=== PATIENT | male | born 1950 | race Caucasian/White ===

== ENCOUNTER 2017-11-16 07:48 | Inpatient (IN) ==
[2017-11-16] MEDS ORDERED: Sod Chloride 0.9% Inj 1,000 ML IV.CONT SCH (09:15)
[2017-11-16 09:42] LABS: Baso # (Auto) 0.1 th/mm3 (0.0-0.2); Baso % (Auto) 1.2 % (0.0-2.0); Eos # (Auto) 0.1 th/mm3 (0.0-0.4); Eos % (Auto) 0.9 % (0.0-4.0); Hematocrit 23.8 % (39.0-51.0); Hemoglobin 7.7 gm/dL (13.0-17.0); Lymph # (Auto) 0.6 th/mm3 (1.0-4.8); Lymph % (Auto) 7.2 % (9.0-44.0); Mean Corpuscular HGB Conc 32.4 % (32.0-36.0); Mean Corpuscular Hemoglobin 31.1 pg (27.0-34.0); Mean Corpuscular Volume 95.9 fL (80.0-100.0); Mean Platelet Volume 7.5 fL (7.0-11.0); Neut # (Auto) 6.9 th/mm3 (1.8-7.7); Neut % (Auto) 79.7 % (16.0-70.0); Platelet Count 253 th/mm3 (150-450); Red Blood Count 2.48 mil/mm3 (4.50-5.90); Red Cell Distribution Width 26.6 % (11.6-17.2); White Blood Count 8.7 th/mm3 (4.0-11.0)
--- NOTE | 2017-11-16 09:45 | XR ---
EXAM DATE: 11/16/2017 9:41 AM EDT AGE/SEX: 67 years / Male INDICATIONS: Confusion, syncope. CLINICAL DATA: This is the patient's initial encounter. Patient reports that signs and symptoms have been present for 1 day and indicates a pain score of 0/10. MEDICAL/SURGICAL HISTORY: Congestive heart failure. Chronic obstructive pulmonary disease. CAB G. Pacemaker. COMPARISON: No prior exams available for comparison. FINDINGS: Small right pleural effusion is noted. Patchy opacity is noted within the right lung base consistent with probable pneumonia. The heart is enlarged. Median sternotomy wires are noted status post cardiac surgery. Left subclavian dual lead pacemaker has its tips in right atrium and right ventricle. No pn eumothorax is noted. CONCLUSION: 1. Patchy opacity within the right lung base consistent with probable pneumonia. Clinical correlatio n is recommended. 2. Small right pleural effusion. 3. Cardiomegaly. Electronically signed by: Thierno Roberts MD 11/16/2017 9:43 AM EDT
[2017-11-16 09:57] LABS: Activated Partial Thrombo Time 27.3 sec (24.3-30.1); INR 1.8 Ratio; Prothrombin Time 18.1 sec (9.8-11.6)
[2017-11-16] MEDS ORDERED: Phytonadione Inj 10 MG in Sodium Chlor 0.9% Inj 50 ML IV.SIG ONE (10:00)
[2017-11-16 10:04] LABS: Albumin 3.7 g/dL (3.4-5.0); Anion Gap 15 meq/L (5-15); Aspartate Aminotransferase 28 U/L (15-37); Blood Urea Nitrogen 82 mg/dL (7-18); Calcium 9.3 mg/dL (8.5-10.1); Carbon Dioxide 21.4 meq/L (21.0-32.0); Chloride 106 meq/L (98-107); Glomerular Filtration Rate 21 mL/min (>89); Glucose,Random 81 mg/dL (74-106); Potassium 4.2 meq/L (3.5-5.1); Sodium 142 meq/L (136-145)
[2017-11-16 10:05] LABS: Alanine Aminotransferase 15 U/L (12-78)
[2017-11-16 10:07] LABS: Alkaline Phosphatase 96 U/L (45-117); Total Protein 6.8 g/dL (6.4-8.2)
[2017-11-16 10:24] LABS: Bilirubin,Urine Negative (Negative); Clarity,Urine Clear (Clear); Color,Urine Yellow (Yellw/Straw); Glucose,Urine (UA) Negative (Negative); Leukocyte Esterase,Urine Negative (Negative); Nitrite,Urine Negative (Negative); Specific Gravity,Urine 1.012 (1.002-1.035)
[2017-11-16 10:31] LABS: Dimorphic RBC Present; Tear Drop Cells 1+
[2017-11-16] MEDS ORDERED: Pantoprazole Inj 40 MG Vial IV.PUSH ONE ×2 (12:58→13:29)
[2017-11-16] MEDS ORDERED: Pantoprazole Inj 80 MG in Sodium Chlor 0.9% Inj 100 ML IV.CONT SCH (13:00)
[2017-11-16] MEDS ORDERED: Octreotide Inj 50 MCG/ML Vial IV.PUSH ONE (13:01)
[2017-11-16] MEDS ORDERED: Sodium Chlor 0.9% Inj 250 ML IV.SIG SCH ×2 (14:00→15:00)
[2017-11-16] MEDS ORDERED: Heparin Central Flush 100 UNIT/ML 5 ML Vial IV.FLUSH ONE (14:49)
--- NOTE | 2017-11-16 14:50 | ED ---
HPI General Chief Complaint: Altered Mental Status Stated Complaint: Poss Bleeding Complaint Time Seen by Provider: 11/16/17 08:13 History of Present Illness HPI narrative: This is a 67-year-old male with a history of renal failure, previous GI bleed, atrial fibrillation, hypertension, diabetes mellitus, who presents today with complaints of bright red blood per rectum. is at bedside states that they are visiting here from [place] and she noted that over the last few days he has been more confused than normal. states that he has been transfused in the past. She states that he is more confused than he has at baseline however he does have baseline confusion. The patient is seen by a physician in [place] and has extensive medical background. The patient reports nausea with no vomiting. There are no other complaints at this time examination. Related Data Home Medications Medication Instructions Recorded Confirmed allopurinol 100 mg PO DAILY 11/16/17 11/16/17 aspirin [Aspir-81] 81 mg PO DAILY 11/16/17 11/16/17 bumetanide 4 mg PO TID 11/16/17 11/16/17 doxycycline hyclate 100 mg PO BID 11/16/17 11/16/17 insulin NPH isoph U-100 human 25 unit SUB-Q QPM 11/16/17 11/16/17 [Novolin N NPH U-100 Insulin] insulin NPH isoph U-100 human 30 unit SUB-Q QAM 11/16/17 11/16/17 [Novolin N NPH U-100 Insulin] metoprolol tartrate 12.5 mg PO BID 11/16/17 11/16/17 pantoprazole 40 mg PO DAILY 11/16/17 11/16/17 rosuvastatin 10 mg PO HS 11/16/17 11/16/17 spironolactone 25 mg PO BID 11/16/17 11/16/17 trazodone 25 mg PO HS 11/16/17 11/16/17 warfarin 2.5 mg PO DIRECTED 11/16/17 11/16/17 warfarin 5 mg PO DIRECTED 11/16/17 11/16/17 Allergies Allergy/AdvReac Type Severity Reaction Status Date / Time atorvastatin Allergy Severe Muscle Pain Verified 11/16/17 08:47 fenofibrate Allergy Severe Joint Pain Verified 11/16/17 08:47 prednisone AdvReac Severe Bleeding Verified 11/16/17 08:47 Review of Systems ROS: all other systems reviewed are negative Constitutional Reports system reviewed and no additional complaints, except as docu, Denies chills and Denies fever(s) Eyes Reports system reviewed and no additional complaints, except as docu ENT Reports system reviewed and no additional complaints, except as docu Cardiovascular Denies chest pain, Reports irregular heart rhythm (History of atrial fibrillation) and Denies palpitations Respiratory Denies chest congestion, Denies cough and Reports dyspnea (Mild) Gastrointestinal Reports hematochezia, Denies coffee ground emesis, Reports nausea and Denies vomiting Genitourinary Reports system reviewed and no additional complaints, except as docu Musculoskeletal Reports system reviewed and no additional complaints, except as docu Neurologic Denies behavioral changes, Reports confusion and Denies headache(s) PMFSH Medical History Medical History A-fib (Acute) Anemia (Acute) CAD (coronary artery disease) (Acute) CHF (congestive heart failure) (Acute) CHF (congestive heart failure) (Acute) Depression (Acute) Diabetes (Acute) GI bleed (Acute) Gout (Acute) High blood pressure (Acute) High cholesterol (Acute) History of blood transfusion (Acute) Hypotension (Acute) Low blood pressure (Acute) Mitral valve prolapse (Acute) Myocardial infarction (Acute) Skin cancer (Acute) Surgical History Surgical History H/O mitral valve replacement (Acute) History of cardiac cath (Acute) Hx of tonsillectomy (Acute) S/P CABG x 5 (Acute) S/P ablation of atrial fibrillation (Acute) Stented coronary artery (Acute) Social History Social History Substance History: No History of Abuse Second Hand Smoke Exposure: No Smoking Status: Former smoker How Often Do You Have a Drink Containing Alcohol: Never Recent Travel in [facility] within the Last 8 Weeks: No Recent Out of Country Travel within the Last 8 Weeks: No Immunization History Tetanus Immunization: >5 Years Hx Influenza Vaccine This Season: Yes Exam Narrative Exam Narrative: GENERAL: Well-developed well-nourished male in no obvious respiratory distress. SKIN: Focused skin assessment warm/dry. HEAD: Atraumatic. Normocephalic. EYES: Pupils equal and round. Mild icteric sclera. No injection or drainage. ENT: No nasal bleeding or discharge. Mucous membranes pink and moist. NECK: Trachea midline. Supple. CARDIOVASCULAR: Irregularly irregular with a rate in the 70s and 80s on my exam. No murmur appreciated. RESPIRATORY: No accessory muscle use. Clear to auscultation. Breath sounds equal bilaterally. GASTROINTESTINAL: Abdomen soft, non-tender, nondistended. Hepatic and splenic margins not palpable. RECTAL EXAM: Conrado red blood noted as rectal vault. MUSCULOSKELETAL: No obvious deformities. No clubbing. No cyanosis. No edema. NEUROLOGICAL: Awake and confused. No obvious cranial nerve deficits. Motor grossly within normal limits. Normal speech. Course Initial Documented Vital Signs Temperature 97.2 F L 11/16/17 07:50 Pulse Rate 75 11/16/17 07:50 Respiratory Rate 22 11/16/17 07:50 Blood Pressure 134/63 11/16/17 07:50 Pulse Oximetry 97 11/16/17 07:50 Last Documented Vital Signs Temperature 97.5 F L 11/16/17 13:22 Pulse Rate 99 H 11/16/17 13:22 Respiratory Rate 21 11/16/17 13:22 Blood Pressure 138/63 11/16/17 13:22 Pulse Oximetry 99 11/16/17 13:22 Medical Decision Making [facility] Narrative Medical decision making narrative: 67-year-old male with history of hepatorenal disease, presents today with complaints of rectal bleeding. The patient is noted to have a hemoglobin of 7.7. His pulse is under 100. Patient does have atrial fibrillation. He is anticoagulated with Coumadin. INR is 1.8. He has been given vitamin K 10 mg IV 1 dose. He has been typed and crossed for 2 units of blood. [facility] who agreed to admit the patient to his service. Patient with a GI consult. He has been started on Protonix. Medical Screen Exam Complete: Yes Emergency Medical Condition: Yes Differential Diagnosis Differential Diagnosis: Upper GI bleed versus lower GI bleed versus over anticoagulation versus liver failure versus renal failure Lab Data Result diagrams: 11/16/17 08:30 11/16/17 08:30 Lab Results 11/16/17 11/16/17 11/16/17 Range/Units 08:30 08:30 08:30 WBC 8.7 (4.0-11.0) th/mm3 RBC 2.48 L (4.50-5.90) mil/mm3 Hgb 7.7 L (13.0-17.0) gm/dL Hct 23.8 L (39.0-51.0) % MCV 95.9 (80.0-100.0) fL MCH 31.1 (27.0-34.0) pg MCHC 32.4 (32.0-36.0) % RDW 26.6 H (11.6-17.2) % Plt Count 253 (150-450) th/mm3 MPV 7.5 (7.0-11.0) fL Prelim Diff (Auto) Slide review pending Neut % (Auto) 79.7 H (16.0-70.0) % Lymph % (Auto) 7.2 L (9.0-44.0) % [place] % (Auto) 11.0 H (0.0-8.0) % Eos % (Auto) 0.9 (0.0-4.0) % Baso % (Auto) 1.2 (0.0-2.0) % Neut # (Auto) 6.9 (1.8-7.7) th/mm3 Lymph # (Auto) 0.6 L (1.0-4.8) th/mm3 [place] # (Auto) 1.0 H (0.0-0.9) th/mm3 Eos # (Auto) 0.1 (0.0-0.4) th/mm3 Baso # (Auto) 0.1 (0.0-0.2) th/mm3 WBC Differential . Diff Scan Auto diff confirmed Differential Comment . Dimorphic RBCs Present H (None) Tear Drop Cells 1+ H (None) PT 18.1 H (9.8-11.6) sec INR 1.8 Ratio APTT 27.3 (24.3-30.1) sec Sodium 142 (136-145) meq/L Potassium 4.2 (3.5-5.1) meq/L Chloride 106 (98-107) meq/L Carbon Dioxide 21.4 (21.0-32.0) meq/L Anion Gap 15 (5-15) meq/L BUN 82 H (7-18) mg/dL Creatinine 2.95 H (0.60-1.30) mg/dL Estimated GFR 21 L (>89) mL/min Random Glucose 81 (74-106) mg/dL Calcium 9.3 (8.5-10.1) mg/dL Total Bilirubin 0.5 (0.2-1.0) mg/dL AST 28 (15-37) U/L ALT 15 (12-78) U/L Alkaline Phosphatase 96 (45-117) U/L Ammonia (11-32) mcmol/L Total Protein 6.8 (6.4-8.2) g/dL Albumin 3.7 (3.4-5.0) g/dL Urine Color (Yellw/Straw) Urine Clarity (Clear) Urine pH (5.0-8.5) Ur Specific [place] (1.002-1.035) Urine Protein (Neg-Trace) mg/dL Urine Glucose (UA) (Negative) mg/dL Urine Ketones (Negative) mg/dL Urine Occult Blood (Negative) Urine Nitrate (Negative) Urine Bilirubin (Negative) Urine Urobilinogen (Less than 2) mg/dL Ur Leukocyte Esterase (Negative) Urine RBC (0-3) /hpf Urine WBC (0-5) /hpf Micro UA Comment Ur Microscopic Review Urine Culture Comments Blood Type Blood Type Recheck Antibody Screen Antibody Identification MTS Gel Crossmatch Blood Bank Comment 11/16/17 11/16/17 11/16/17 Range/Units 08:30 09:34 10:00 WBC (4.0-11.0) th/mm3 RBC (4.50-5.90) mil/mm3 Hgb (13.0-17.0) gm/dL Hct (39.0-51.0) % MCV (80.0-100.0) fL MCH (27.0-34.0) pg MCHC (32.0-36.0) % RDW (11.6-17.2) % Plt Count (150-450) th/mm3 MPV (7.0-11.0) fL Prelim Diff (Auto) Neut % (Auto) (16.0-70.0) % Lymph % (Auto) (9.0-44.0) % [place] % (Auto) (0.0-8.0) % Eos % (Auto) (0.0-4.0) % Baso % (Auto) (0.0-2.0) % Neut # (Auto) (1.8-7.7) th/mm3 Lymph # (Auto) (1.0-4.8) th/mm3 [place] # (Auto) (0.0-0.9) th/mm3 Eos # (Auto) (0.0-0.4) th/mm3 Baso # (Auto) (0.0-0.2) th/mm3 WBC Differential Diff Scan Differential Comment Dimorphic RBCs (None) Tear Drop Cells (None) PT (9.8-11.6) sec INR Ratio APTT (24.3-30.1) sec Sodium (136-145) meq/L Potassium (3.5-5.1) meq/L Chloride (98-107) meq/L Carbon Dioxide (21.0-32.0) meq/L Anion Gap (5-15) meq/L BUN (7-18) mg/dL Creatinine (0.60-1.30) mg/dL Estimated GFR (>89) mL/min Random Glucose (74-106) mg/dL Calcium (8.5-10.1) mg/dL Total Bilirubin (0.2-1.0) mg/dL AST (15-37) U/L ALT (12-78) U/L Alkaline Phosphatase (45-117) U/L Ammonia 98 H (11-32) mcmol/L Total Protein (6.4-8.2) g/dL Albumin (3.4-5.0) g/dL Urine Color Yellow (Yellw/Straw) Urine Clarity Clear (Clear) Urine pH 6.0 (5.0-8.5) Ur Specific [place] 1.012 (1.002-1.035) Urine Protein Negative (Neg-Trace) mg/dL Urine Glucose (UA) Negative (Negative) mg/dL Urine Ketones Trace H (Negative) mg/dL Urine Occult Blood Negative (Negative) Urine Nitrate Negative (Negative) Urine Bilirubin Negative (Negative) Urine Urobilinogen Less than 2 (Less than 2) mg/dL Ur Leukocyte Esterase Negative (Negative) Urine RBC Less than 1 (0-3) /hpf Urine WBC Less than 1 (0-5) /hpf Micro UA Comment Culture not ind Ur Microscopic Review Not Reportable Urine Culture Comments Culture not ind Blood Type O Negative Blood Type Recheck Required Antibody Screen Positive H Antibody Identification MTS Gel Crossmatch See Detail Blood Bank Comment 11/16/17 11/16/17 Range/Units 11:07 13:24 WBC (4.0-11.0) th/mm3 RBC (4.50-5.90) mil/mm3 Hgb (13.0-17.0) gm/dL Hct (39.0-51.0) % MCV (80.0-100.0) fL MCH (27.0-34.0) pg MCHC (32.0-36.0) % RDW (11.6-17.2) % Plt Count (150-450) th/mm3 MPV (7.0-11.0) fL Prelim Diff (Auto) Neut % (Auto) (16.0-70.0) % Lymph % (Auto) (9.0-44.0) % [place] % (Auto) (0.0-8.0) % Eos % (Auto) (0.0-4.0) % Baso % (Auto) (0.0-2.0) % Neut # (Auto) (1.8-7.7) th/mm3 Lymph # (Auto) (1.0-4.8) th/mm3 [place] # (Auto) (0.0-0.9) th/mm3 Eos # (Auto) (0.0-0.4) th/mm3 Baso # (Auto) (0.0-0.2) th/mm3 WBC Differential Diff Scan Differential Comment Dimorphic RBCs (None) Tear Drop Cells (None) PT (9.8-11.6) sec INR Ratio APTT (24.3-30.1) sec Sodium (136-145) meq/L Potassium (3.5-5.1) meq/L Chloride (98-107) meq/L Carbon Dioxide (21.0-32.0) meq/L Anion Gap (5-15) meq/L BUN (7-18) mg/dL Creatinine (0.60-1.30) mg/dL Estimated GFR (>89) mL/min Random Glucose (74-106) mg/dL Calcium (8.5-10.1) mg/dL Total Bilirubin (0.2-1.0) mg/dL AST (15-37) U/L ALT (12-78) U/L Alkaline Phosphatase (45-117) U/L Ammonia (11-32) mcmol/L Total Protein (6.4-8.2) g/dL Albumin (3.4-5.0) g/dL Urine Color (Yellw/Straw) Urine Clarity (Clear) Urine pH (5.0-8.5) Ur Specific [place] (1.002-1.035) Urine Protein (Neg-Trace) mg/dL Urine Glucose (UA) (Negative) mg/dL Urine Ketones (Negative) mg/dL Urine Occult Blood (Negative) Urine Nitrate (Negative) Urine Bilirubin (Negative) Urine Urobilinogen (Less than 2) mg/dL Ur Leukocyte Esterase (Negative) Urine RBC (0-3) /hpf Urine WBC (0-5) /hpf Micro UA Comment Ur Microscopic Review Urine Culture Comments Blood Type Blood Type Recheck Antibody Screen Antibody Identification Anti-K MTS Gel Crossmatch Blood Bank Comment Imaging Data Radiologist's impression: Chest X-Ray 11/16/17 09:12 CONCLUSION: 1. Patchy opacity within the right lung base consistent with probable pneumonia. Clinical correlation is recommended. 2. Small right pleural effusion. 3. Cardiomegaly. Discharge Plan Discharge Disposition Patient Disposition: 30 Still Patient Discharge Details Diagnosis: GI (gastrointestinal hemorrhage), Altered mental status, Anticoagulated on warfarin, Renal failure, Anemia Physicians Team ED Provider: Sabas Palomino Attending Provider: Luis Hernandez Other Providers: Roddy Patel Discharge Interventions Interventions: Vital Signs Last Done: 11/16/17 10:00 Discharge Planning - Case Management Last Done: 11/16/17 11:37 Status ED Status: Admitted Patient
--- NOTE | 2017-11-16 16:49 | P.CONGI ---
History of Present Illness Consult date: 11/16/17 Consult reason: GI bleed, rectal bleeding Chief complaint: GI Bleed, Anticoagulates, Renal Failure, Anemia History of Present Illness: This is a 67-year-old thin male who is from the [place] area on vacation presented to the emergency room with maroon rectal bleeding with a mixture of some dark blood over the past 24 hours patient does have significant history of GI bleeding, hypertension, diabetes and some baseline altered mental status according to the record. Patient also notes symptoms of weakness and fatigue and some nausea without vomiting. is in the room and is currently giving the history on the patient secondary to patient's altered mental status. Patient currently also on Coumadin therapy and is managed by Dr. Peck, ). Cardiology for mitral valve replacement and atrial fibrillation. Patient is also on iron infusions and he is received a total of 3 in the past few weeks. 2 of the iron infusions were given this past week before he left for vacation. Last hemoglobin check was approximately 2 weeks ago and unremarkable according to the . Currently patient is awake but fairly restless and appears mildly confused and restless at times patient's ammonia level is 98 PT/INR 1.8, and hemoglobin is 7.7 patient is currently receiving packed RBC transfusion. states that patient had similar incidents approximately 4 months ago and had EGD colonoscopy done. 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 denies any alcohol use and no family history of colon cancer. Patient does appear pale, and altered mental status which is probably related to his elevated ammonia level. Gastroenterology has been consulted to assist with this patient's acute symptoms as well as his plan of care. <Laxmi Izaguirre - Last Filed: 11/16/17 17:10> Review of Systems All other systems reviewed negative except as stated in HPI <Laxmi Izaguirre - Last Filed: 11/16/17 17:10> PMF - History History Provided By: Patient, Family Member - Medical History Medical History: Medical History (Last Updated 11/16/17 @ 08:53 by Erin Hammonds) A-fib Anemia CAD (coronary artery disease) CHF (congestive heart failure) CHF (congestive heart failure) Depression Diabetes GI bleed Gout High blood pressure High cholesterol History of blood transfusion Hypotension Low blood pressure Mitral valve prolapse Myocardial infarction Skin cancer - Surgical History Surgical History: Surgical History (Last Updated 11/16/17 @ 08:53 by [employer]) H/O mitral valve replacement History of cardiac cath Hx of tonsillectomy S/P CABG x 5 S/P ablation of atrial fibrillation Stented coronary artery - Tobacco History Second Hand Smoke Exposure: No Tobacco Use In Past 30 Days: No Smoking Status: Former smoker - Alcohol History How Often Do You Have a Drink Containing Alcohol: Never - Substance Use History Substance History: No History of Abuse - Travel History Recent Travel in the [place] Within the Last 8 Weeks: No Recent Travel Out of the Country Within the Last 8 Weeks: No - Immunization History Tetanus Immunization: >5 Years Hx Influenza Vaccine This Season: Yes <Laxmi Izaguirre - Last Filed: 11/16/17 17:10> - Medical History Medical History: Medical History (Last Updated 11/16/17 @ 08:53 by [employer]) A-fib Anemia CAD (coronary artery disease) CHF (congestive heart failure) CHF (congestive heart failure) Depression Diabetes GI bleed Gout High blood pressure High cholesterol History of blood transfusion Hypotension Low blood pressure Mitral valve prolapse Myocardial infarction Skin cancer - Surgical History Surgical History: Surgical History (Last Updated 11/16/17 @ 08:53 by [employer]) H/O mitral valve replacement History of cardiac cath Hx of tonsillectomy S/P CABG x 5 S/P ablation of atrial fibrillation Stented coronary artery <Roddy Patel - Last Filed: 11/16/17 22:02> Medications and Allergies Active Medications: Active Medications Pantoprazole Sodium 80 mg/ (Sodium Chloride) 100 mls @ 10 mls/hr IV.CONT CONT DAMIAN Ceftriaxone Sodium 1,000 mg/ (Sodium Chloride) 100 mls @ 200 mls/hr IV.SIG Q24H DAMIAN Octreotide Acetate 500 mcg/ (Sodium Chloride) 500.5 mls @ 25.02 mls/hr IV.CONT .Q20H1M DAMIAN Stop: 11/21/17 13:59 Sodium Chloride (Ns Inj) 1,000 mls @ 100 mls/hr IV.CONT .Q10H DAMIAN Sodium Chloride (Ns Inj) 250 mls @ 15 mls/hr IV.SIG ONCE DAMIAN Stop: 11/17/17 06:39 Sodium Chloride (Ns Inj) 250 mls @ 15 mls/hr IV.SIG ONCE DAMIAN Stop: 11/17/17 07:39 Sodium Chloride (Ns Flush) 2 ml IV.FLUSH BID DAMIAN Sodium Chloride (Ns Flush) 2 ml IV.FLUSH UNSCH PRN PRN Reason: FLUSH AFTER USING IV ACCESS <Laxmi Izaguirre - Last Filed: 11/16/17 17:10> Active Medications: Active Medications Pantoprazole Sodium 80 mg/ (Sodium Chloride) 100 mls @ 10 mls/hr IV.CONT CONT DAMIAN Last Admin: 11/16/17 17:04 Dose: 10 mls/hr Ceftriaxone Sodium 1,000 mg/ (Sodium Chloride) 100 mls @ 200 mls/hr IV.SIG Q24H DAMIAN Last Admin: 11/16/17 17:03 Dose: 200 mls/hr Octreotide Acetate 500 mcg/ (Sodium Chloride) 500.5 mls @ 25.02 mls/hr IV.CONT .Q20H1M DAMIAN Stop: 11/21/17 13:59 Last Admin: 11/16/17 17:04 Dose: 25 mcg/hr, 25.02 mls/hr Sodium Chloride (Ns Inj) 1,000 mls @ 100 mls/hr IV.CONT .Q10H DAMIAN Last Admin: 11/16/17 21:23 Dose: Not Given Sodium Chloride (Ns Inj) 250 mls @ 15 mls/hr IV.SIG ONCE DAMIAN Stop: 11/17/17 06:39 Last Admin: 11/16/17 14:00 Dose: 15 mls/hr Sodium Chloride (Ns Inj) 250 mls @ 15 mls/hr IV.SIG ONCE DAMIAN Stop: 11/17/17 07:39 Last Admin: 11/16/17 17:38 Dose: 15 mls/hr Lactated Ringer's (Lr 1000 Ml Inj) 1,000 mls @ 30 mls/hr IV.SIG .Q24H DAMIAN Stop: 11/17/17 21:44 Sodium Chloride (Ns Inj) 500 mls @ 30 mls/hr IV.SIG .Q10H DAMIAN Sodium Chloride (Ns Flush) 2 ml IV.FLUSH BID DAMIAN Last Admin: 11/16/17 21:24 Dose: 2 ml Sodium Chloride (Ns Flush) 2 ml IV.FLUSH UNSCH PRN PRN Reason: FLUSH AFTER USING IV ACCESS <Roddy Patel E - Last Filed: 11/16/17 22:02> Allergies Allergy/AdvReac Type Severity Reaction Status Date / Time atorvastatin Allergy Severe Muscle Pain Verified 11/16/17 08:47 fenofibrate Allergy Severe Joint Pain Verified 11/16/17 08:47 prednisone AdvReac Severe Bleeding Verified 11/16/17 08:47 Home Medications Medication Instructions Recorded Confirmed Type allopurinol 100 mg PO DAILY 11/16/17 11/16/17 History aspirin [Aspir-81] 81 mg PO DAILY 11/16/17 11/16/17 History bumetanide 4 mg PO TID 11/16/17 11/16/17 History doxycycline hyclate 100 mg PO BID 11/16/17 11/16/17 History insulin NPH isoph U-100 human 25 unit SUB-Q QPM 11/16/17 11/16/17 History [Novolin N NPH U-100 Insulin] insulin NPH isoph U-100 human 30 unit SUB-Q QAM 11/16/17 11/16/17 History [Novolin N NPH U-100 Insulin] metoprolol tartrate 12.5 mg PO BID 11/16/17 11/16/17 History pantoprazole 40 mg PO DAILY 11/16/17 11/16/17 History rosuvastatin 10 mg PO HS 11/16/17 11/16/17 History spironolactone 25 mg PO BID 11/16/17 11/16/17 History trazodone 25 mg PO HS 11/16/17 11/16/17 History warfarin 2.5 mg PO DIRECTED 11/16/17 11/16/17 History warfarin 5 mg PO DIRECTED 11/16/17 11/16/17 History Exam Vital signs: Vital Signs 11/16/17 07:50 11/16/17 08:30 11/16/17 09:00 Temperature 97.2 F L Pulse Rate 75 73 79 Respiratory Rate 22 21 16 Blood Pressure 134/63 118/65 109/63 Pulse Oximetry 97 98 100 11/16/17 09:15 11/16/17 10:00 11/16/17 13:05 Temperature 97.9 F Pulse Rate 74 101 H Respiratory Rate 15 19 Blood Pressure 116/58 L 121/53 L Pulse Oximetry 98 99 99 11/16/17 13:20 11/16/17 13:22 Temperature 97.6 F 97.5 F L Pulse Rate 100 H 99 H Respiratory Rate 16 21 Blood Pressure 140/60 138/63 Pulse Oximetry 100 99 Intake & Output 11/15/17 11/16/17 11/16/17 18:59 06:59 18:59 Intake Total 102 / 102 Output Total 150 / 150 Balance -48 / -48 Weight 92.533 kg Intake: IV 102 / 102 Vitamin K Inj 10 MG In NS Inj 102 / 102 50 ML @ 102 mls/hr IV.SIG ONCE ONE Rx#:[id number] Intake (Blood Product) Amt 0 / 0 Rbc As-3 Leukoreduced Unit 0 / 0 [id number] Output: Urine 150 / 150 - Constitutional moderate distress, thin, cachectic, disheveled - Routine HEENT Exam Head: Present: normocephalic ENT: Present: mucous membranes moist - Routine Neck Exam Present: supple - Routine Respiratory Exam Present: accessory muscle use (Low volumes, no obvious shortness of breath) - Routine Cardiovascular Exam Present: S1, S2 (Distant) - Routine Abdominal Exam Present: soft, normoactive bowel sounds, tenderness (No obvious tenderness or abdominal pain) <Laxmi Izaguirre - Last Filed: 11/16/17 17:10> Vital signs: Vital Signs 11/16/17 07:50 11/16/17 08:30 11/16/17 09:00 Temperature 97.2 F L Pulse Rate 75 73 79 Respiratory Rate 22 21 16 Blood Pressure 134/63 118/65 109/63 Pulse Oximetry 97 98 100 11/16/17 09:15 11/16/17 10:00 11/16/17 13:05 Temperature 97.9 F Pulse Rate 74 101 H Respiratory Rate 15 19 Blood Pressure 116/58 L 121/53 L Pulse Oximetry 98 99 99 11/16/17 13:20 11/16/17 13:22 11/16/17 17:30 Temperature 97.6 F 97.5 F L Pulse Rate 100 H 99 H 77 Respiratory Rate 16 21 18 Blood Pressure 140/60 138/63 139/65 Pulse Oximetry 100 99 11/16/17 18:08 11/16/17 18:27 11/16/17 20:00 Temperature 97.4 F L 97.2 F L 97.6 F Pulse Rate 75 75 77 Respiratory Rate 16 17 19 Blood Pressure 145/64 H 134/64 135/61 Pulse Oximetry 93 L 98 Intake & Output 11/16/17 11/16/17 11/17/17 06:59 18:59 06:59 Intake Total 1102 / 1102 Output Total 150 / 150 Balance 952 / 952 Weight 92.533 kg Intake: IV 1102 / 1102 NS Inj 1,000 ML @ 100 mls/hr IV 1000 / 1000 .CONT .Q10H DAMIAN Rx#:[id number] Vitamin K Inj 10 MG In NS Inj 102 / 102 50 ML @ 102 mls/hr IV.SIG ONCE ONE Rx#:[id number] Intake (Blood Product) Amt 0 / 0 Liquid Plasma Cp2d Unit 0 / 0 [id number] Rbc As-3 Leukoreduced Unit 0 / 0 [id number] Output: Urine 150 / 150 <Roddy Patel E - Last Filed: 11/16/17 22:02> Results - Labs CBC & Chem 7: 11/16/17 08:30 11/16/17 08:30 Labs: Laboratory Results - last 24 hr 11/16/17 11/16/17 11/16/17 08:30 08:30 08:30 WBC 8.7 RBC 2.48 L Hgb 7.7 L Hct 23.8 L MCV 95.9 MCH 31.1 MCHC 32.4 RDW 26.6 H Plt Count 253 MPV 7.5 Prelim Diff (Auto) Slide review pending Neut % (Auto) 79.7 H Lymph % (Auto) 7.2 L Garza % (Auto) 11.0 H Eos % (Auto) 0.9 Baso % (Auto) 1.2 Neut # (Auto) 6.9 Lymph # (Auto) 0.6 L Garza # (Auto) 1.0 H Eos # (Auto) 0.1 Baso # (Auto) 0.1 WBC Differential . Diff Scan Auto diff confirmed Differential Comment . Dimorphic RBCs Present H Tear Drop Cells 1+ H PT 18.1 H INR 1.8 APTT 27.3 Sodium 142 Potassium 4.2 Chloride 106 Carbon Dioxide 21.4 Anion Gap 15 BUN 82 H Creatinine 2.95 H Estimated GFR 21 L Random Glucose 81 Calcium 9.3 Total Bilirubin 0.5 AST 28 ALT 15 Alkaline Phosphatase 96 Ammonia Total Protein 6.8 Albumin 3.7 Urine Color Urine Clarity Urine pH Ur Specific [place] Urine Protein Urine Glucose (UA) Urine Ketones Urine Occult Blood Urine Nitrate Urine Bilirubin Urine Urobilinogen Ur Leukocyte Esterase Urine RBC Urine WBC Micro UA Comment Ur Microscopic Review Urine Culture Comments Blood Type Blood Type Recheck Antibody Screen Antibody Identification MTS Gel Crossmatch Blood Bank Comment 11/16/17 11/16/17 11/16/17 08:30 09:34 10:00 WBC RBC Hgb Hct MCV MCH MCHC RDW Plt Count MPV Prelim Diff (Auto) Neut % (Auto) Lymph % (Auto) Garza % (Auto) Eos % (Auto) Baso % (Auto) Neut # (Auto) Lymph # (Auto) Garza # (Auto) Eos # (Auto) Baso # (Auto) WBC Differential Diff Scan Differential Comment Dimorphic RBCs Tear Drop Cells PT INR APTT Sodium Potassium Chloride Carbon Dioxide Anion Gap BUN Creatinine Estimated GFR Random Glucose Calcium Total Bilirubin AST ALT Alkaline Phosphatase Ammonia 98 H Total Protein Albumin Urine Color Yellow Urine Clarity Clear Urine pH 6.0 Ur Specific [place] 1.012 Urine Protein Negative Urine Glucose (UA) Negative Urine Ketones Trace H Urine Occult Blood Negative Urine Nitrate Negative Urine Bilirubin Negative Urine Urobilinogen Less than 2 Ur Leukocyte Esterase Negative Urine RBC Less than 1 Urine WBC Less than 1 Micro UA Comment Culture not ind Ur Microscopic Review Not Reportable Urine Culture Comments Culture not ind Blood Type O Negative Blood Type Recheck Required Antibody Screen Positive H Antibody Identification MTS Gel Crossmatch See Detail Blood Bank Comment 11/16/17 11/16/17 11:07 13:24 WBC RBC Hgb Hct MCV MCH MCHC RDW Plt Count MPV Prelim Diff (Auto) Neut % (Auto) Lymph % (Auto) Garza % (Auto) Eos % (Auto) Baso % (Auto) Neut # (Auto) Lymph # (Auto) Garza # (Auto) Eos # (Auto) Baso # (Auto) WBC Differential Diff Scan Differential Comment Dimorphic RBCs Tear Drop Cells PT INR APTT Sodium Potassium Chloride Carbon Dioxide Anion Gap BUN Creatinine Estimated GFR Random Glucose Calcium Total Bilirubin AST ALT Alkaline Phosphatase Ammonia Total Protein Albumin Urine Color Urine Clarity Urine pH Ur Specific [place] Urine Protein Urine Glucose (UA) Urine Ketones Urine Occult Blood Urine Nitrate Urine Bilirubin Urine Urobilinogen Ur Leukocyte Esterase Urine RBC Urine WBC Micro UA Comment Ur Microscopic Review Urine Culture Comments Blood Type Blood Type Recheck Antibody Screen Antibody Identification Anti-K MTS Gel Crossmatch Blood Bank Comment - Imaging Impressions Chest X-Ray 11/16/17 09:12 CONCLUSION: 1. Patchy opacity within the right lung base consistent with probable pneumonia. Clinical correlation is recommended. 2. Small right pleural effusion. 3. Cardiomegaly. <Laxmi Izaguirre - Last Filed: 11/16/17 17:10> - Labs CBC & Chem 7: 11/16/17 08:30 11/16/17 08:30 Labs: Laboratory Results - last 24 hr 11/16/17 11/16/17 11/16/17 08:30 08:30 08:30 WBC 8.7 RBC 2.48 L Hgb 7.7 L Hct 23.8 L MCV 95.9 MCH 31.1 MCHC 32.4 RDW 26.6 H Plt Count 253 MPV 7.5 Prelim Diff (Auto) Slide review pending Neut % (Auto) 79.7 H Lymph % (Auto) 7.2 L Garza % (Auto) 11.0 H Eos % (Auto) 0.9 Baso % (Auto) 1.2 Neut # (Auto) 6.9 Lymph # (Auto) 0.6 L Garza # (Auto) 1.0 H Eos # (Auto) 0.1 Baso # (Auto) 0.1 WBC Differential . Diff Scan Auto diff confirmed Differential Comment . Dimorphic RBCs Present H Tear Drop Cells 1+ H PT 18.1 H INR 1.8 APTT 27.3 Sodium 142 Potassium 4.2 Chloride 106 Carbon Dioxide 21.4 Anion Gap 15 BUN 82 H Creatinine 2.95 H Estimated GFR 21 L Random Glucose 81 Calcium 9.3 Total Bilirubin 0.5 AST 28 ALT 15 Alkaline Phosphatase 96 Ammonia Total Protein 6.8 Albumin 3.7 Urine Color Urine Clarity Urine pH Ur Specific [place] Urine Protein Urine Glucose (UA) Urine Ketones Urine Occult Blood Urine Nitrate Urine Bilirubin Urine Urobilinogen Ur Leukocyte Esterase Urine RBC Urine WBC Micro UA Comment Ur Microscopic Review Urine Culture Comments Blood Type Blood Type Recheck Antibody Screen Antibody Identification MTS Gel Crossmatch Blood Bank Comment 11/16/17 11/16/17 11/16/17 08:30 09:34 10:00 WBC RBC Hgb Hct MCV MCH MCHC RDW Plt Count MPV Prelim Diff (Auto) Neut % (Auto) Lymph % (Auto) Garza % (Auto) Eos % (Auto) Baso % (Auto) Neut # (Auto) Lymph # (Auto) Garza # (Auto) Eos # (Auto) Baso # (Auto) WBC Differential Diff Scan Differential Comment Dimorphic RBCs Tear Drop Cells PT INR APTT Sodium Potassium Chloride Carbon Dioxide Anion Gap BUN Creatinine Estimated GFR Random Glucose Calcium Total Bilirubin AST ALT Alkaline Phosphatase Ammonia 98 H Total Protein Albumin Urine Color Yellow Urine Clarity Clear Urine pH 6.0 Ur Specific [place] 1.012 Urine Protein Negative Urine Glucose (UA) Negative Urine Ketones Trace H Urine Occult Blood Negative Urine Nitrate Negative Urine Bilirubin Negative Urine Urobilinogen Less than 2 Ur Leukocyte Esterase Negative Urine RBC Less than 1 Urine WBC Less than 1 Micro UA Comment Culture not ind Ur Microscopic Review Not Reportable Urine Culture Comments Culture not ind Blood Type O Negative Blood Type Recheck Required Antibody Screen Positive H Antibody Identification MTS Gel Crossmatch See Detail Blood Bank Comment 11/16/17 11/16/17 11:07 13:24 WBC RBC Hgb Hct MCV MCH MCHC RDW Plt Count MPV Prelim Diff (Auto) Neut % (Auto) Lymph % (Auto) Garza % (Auto) Eos % (Auto) Baso % (Auto) Neut # (Auto) Lymph # (Auto) Garza # (Auto) Eos # (Auto) Baso # (Auto) WBC Differential Diff Scan Differential Comment Dimorphic RBCs Tear Drop Cells PT INR APTT Sodium Potassium Chloride Carbon Dioxide Anion Gap BUN Creatinine Estimated GFR Random Glucose Calcium Total Bilirubin AST ALT Alkaline Phosphatase Ammonia Total Protein Albumin Urine Color Urine Clarity Urine pH Ur Specific [place] Urine Protein Urine Glucose (UA) Urine Ketones Urine Occult Blood Urine Nitrate Urine Bilirubin Urine Urobilinogen Ur Leukocyte Esterase Urine RBC Urine WBC Micro UA Comment Ur Microscopic Review Urine Culture Comments Blood Type Blood Type Recheck Antibody Screen Antibody Identification Anti-K MTS Gel Crossmatch Blood Bank Comment - Imaging Impressions GI Bleed Scan Nuclear Medicine 11/16/17 00:00 CONCLUSION: Positive GI bleeding scan as above. Chest X-Ray 11/16/17 09:12 CONCLUSION: 1. Patchy opacity within the right lung base consistent with probable pneumonia. Clinical correlation is recommended. 2. Small right pleural effusion. 3. Cardiomegaly. <Roddy Patel E - Last Filed: 11/16/17 22:02> Assessment and Plan - Plan Maroon rectal bleeding with a mixture of some dark blood over the past 24 hours patient does have significant history of GI bleeding, hypertension, diabetes and some baseline altered mental status according to the record. weakness and fatigue and some nausea without vomiting. is in the room and is currently giving the history on the patient secondary to patient's altered mental status. Patient currently also on Coumadin therapy and is managed by Dr. Peck, ([phone]). Cardiology for mitral valve replacement and atrial fibrillation. Patient is also on iron infusions and he is received a total of 3 in the past few weeks. 2 of the iron infusions were given this past week before he left for vacation. Hyperammonemia ,mildly confused and restless at times patient's ammonia level is 98, PT/INR 1.8, and hemoglobin is 7.7 patient is currently receiving packed RBC transfusion. states that patient had similar incidents approximately 4 months ago and had EGD colonoscopy done. 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 denies any alcohol use and no family history of colon cancer. Patient does appear pale, and altered mental status which is probably related to his elevated ammonia level. Gastroenterology has been consulted to assist with this patient's acute symptoms as well as his plan of care. Coagulopathy with INR 1.8, patient was given vitamin K dose in the emergency room setting, currently has first unit of packed RBCs transfusing, 2 units ordered. Current plan of care is to controlled coagulopathy and decrease INR to 145 or less. Plan for bleeding scan this p.m. if patient can tolerate, and planned for 2 units of FFP to be initiated at a 100 on 11/17/2017. Plan for EGD in a.m. and PT/INR check and evaluation. Explained plan of care to and she agrees Plan Diet n.p.o. Nuclear medicine bleeding scan this p.m. Transfuse packed RBCs and monitor hemoglobin FFP 2 units to be given at 0100 INR for am, check and notify GI if >1.5 Consent for enteroscopy in a.m. Supportive care PPI Further recommendations to follow Patient was seen per myself and Dr. Patel, note was written on his behalf <Laxmi Izaguirre - Last Filed: 11/16/17 17:10> - Plan Patient seen and examined Agree with above Continue current supportive care Monitor labs Bleeding scan is come back positive for bleeding from the small bowel Patient to proceed with enteroscopy tomorrow case was discussed with his she is agreeable We will continue with current supportive measures which include FFP for reversal of anticoagulation Further recommendations shall depend on his hospital course and findings of endoscopy <Roddy Patel E - Last Filed: 11/16/17 22:02>
--- NOTE | 2017-11-16 16:56 | NM ---
EXAM DATE: 11/16/2017 4:47 PM EDT AGE/SEX: 67 years / Male INDICATIONS: Rectal bleed. CLINICAL DATA: This is the patient's initial encounter. Patient reports that signs and symptoms have been present for 1 day and indicates a pain score of 0/10. MEDICAL/SURGICAL HISTORY: Congestive heart failure. Hypertension. Myocardial infarction. Atr ial fibrillation. Tonsillectomy. CABG. Coronary artery stent. Mitral valve replacement and ablati on. COMPARISON: No prior exams available for comparison. TECHNIQUE: Following the modified in vitro labeling of autologous red cells, dynamic continuous image s were acquired for two hours. ?? DOSE: 21 mCi Tc 99m Ultratag Labeled Red Blood Cells IV IMAGING TIME: 1 hr FINDINGS: Biodistribution: There is a very good labeling of red cells positive GI bleeding scan without signif icant uptake in the gastric wall. There is good delineation of the blood pool of the spleen and abdo migue vessels. Bleeding: There appears to be an area of active bleeding in what appears to be a right para midline mid abdominal small bowel loop. CONCLUSION: Positive GI bleeding scan as above. Electronically signed by: Caio Quiroz MD 11/16/2017 4:55 PM EDT
[2017-11-16] MEDS: Octreotide Inj 500 MCG in Sodium Chlor 0.9% Inj 500 ML IV.CONT SCH (17:04)
--- NOTE | 2017-11-16 18:08 | P.HPIM ---
History of Present Illness Primary Care Physician: Michael Mcelroy Chief Complaint: Bloody stools History of Present Illness: This patient is a 67-year-old male who is from [place] and currently on vacation. The patient has an extensive cardiac history. He has a history of coronary artery disease status post CABG, mitral valve replacement, atrial fibrillation on Coumadin, and right-sided heart failure, and chronic kidney disease.. The patient's hot wort settler name is Dr. Peck in [place](). As per the patient's and the patient's hot wort settler the patient has a history of GI bleeds in the past and has required multiple EGDs in the past because of upper GI bleeds. I spoke to Dr. Peck over the phone who said that the EGDs showed AVMs and his last EGD the patient had a great amount of bleeding. During a bleeding episode the patient required nearly 10 units of PRBCs as per the patient's . This morning the patient appeared to be altered and the noticed that he had a maroon colored bowel movement. She then brought the patient into the emergency department for evaluation and care. There is no fevers or chills, no chest pain, no shortness of breath. Inpatient Certification: I certify that the inpatient services were ordered in accordance with Medicare regulations governing the order. This includes certification that hospital inpatient services are reasonable and necessary and in the case of services not specified as inpatient-only under 42 CFR 419.22(n), that they are appropriately provided as inpatient services in accordance to with the 2-midnight benchmark under 43 CFR 412.3(e) Estimated Total Length of Stay (Days): 3 Plans for Post Hospital Care: Home Review of Systems All other systems reviewed negative except as stated in HPI [facility] - History History Provided By: Patient, Family Member - Medical History Medical History: Medical History (Last Updated 11/16/17 @ 08:53 by Sandglaz) A-fib Anemia CAD (coronary artery disease) CHF (congestive heart failure) CHF (congestive heart failure) Depression Diabetes GI bleed Gout High blood pressure High cholesterol History of blood transfusion Hypotension Low blood pressure Mitral valve prolapse Myocardial infarction Skin cancer - Surgical History Surgical History: Surgical History (Last Updated 11/16/17 @ 08:53 by Sandglaz) H/O mitral valve replacement History of cardiac cath Hx of tonsillectomy S/P CABG x 5 S/P ablation of atrial fibrillation Stented coronary artery - Tobacco History Second Hand Smoke Exposure: No Tobacco Use In Past 30 Days: No Smoking Status: Former smoker - Alcohol History How Often Do You Have a Drink Containing Alcohol: Never - Substance Use History Substance History: No History of Abuse - Travel History Recent Travel in the [place] Within the Last 8 Weeks: No Recent Travel Out of the Country Within the Last 8 Weeks: No - Immunization History Tetanus Immunization: >5 Years Hx Influenza Vaccine This Season: Yes Medications and Allergies Active Medications: Active Medications Pantoprazole Sodium 80 mg/ (Sodium Chloride) 100 mls @ 10 mls/hr IV.CONT CONT [facility] Last Admin: 11/16/17 17:04 Dose: 10 mls/hr Ceftriaxone Sodium 1,000 mg/ (Sodium Chloride) 100 mls @ 200 mls/hr IV.SIG Q24H [facility] Last Admin: 11/16/17 17:03 Dose: 200 mls/hr Octreotide Acetate 500 mcg/ (Sodium Chloride) 500.5 mls @ 25.02 mls/hr IV.CONT .Q20H1M [facility] Stop: 11/21/17 13:59 Last Admin: 11/16/17 17:04 Dose: 25 mcg/hr, 25.02 mls/hr Sodium Chloride (Ns Inj) 1,000 mls @ 100 mls/hr IV.CONT .Q10H [facility] Sodium Chloride (Ns Inj) 250 mls @ 15 mls/hr IV.SIG ONCE [facility]IAN Stop: 11/17/17 06:39 Last Admin: 11/16/17 14:00 Dose: 15 mls/hr Sodium Chloride (Ns Inj) 250 mls @ 15 mls/hr IV.SIG ONCE DAMIAN Stop: 11/17/17 07:39 Last Admin: 11/16/17 17:38 Dose: 15 mls/hr Sodium Chloride (Ns Flush) 2 ml IV.FLUSH BID DAMIAN Sodium Chloride (Ns Flush) 2 ml IV.FLUSH UNSCH PRN PRN Reason: FLUSH AFTER USING IV ACCESS Allergies Allergy/AdvReac Type Severity Reaction Status Date / Time atorvastatin Allergy Severe Muscle Pain Verified 11/16/17 08:47 fenofibrate Allergy Severe Joint Pain Verified 11/16/17 08:47 prednisone AdvReac Severe Bleeding Verified 11/16/17 08:47 Home Medications Medication Instructions Recorded Confirmed Type allopurinol 100 mg PO DAILY 11/16/17 11/16/17 History aspirin [Aspir-81] 81 mg PO DAILY 11/16/17 11/16/17 History bumetanide 4 mg PO TID 11/16/17 11/16/17 History doxycycline hyclate 100 mg PO BID 11/16/17 11/16/17 History insulin NPH isoph U-100 human 25 unit SUB-Q QPM 11/16/17 11/16/17 History [Novolin N NPH U-100 Insulin] insulin NPH isoph U-100 human 30 unit SUB-Q QAM 11/16/17 11/16/17 History [Novolin N NPH U-100 Insulin] metoprolol tartrate 12.5 mg PO BID 11/16/17 11/16/17 History pantoprazole 40 mg PO DAILY 11/16/17 11/16/17 History rosuvastatin 10 mg PO HS 11/16/17 11/16/17 History spironolactone 25 mg PO BID 11/16/17 11/16/17 History trazodone 25 mg PO HS 11/16/17 11/16/17 History warfarin 2.5 mg PO DIRECTED 11/16/17 11/16/17 History warfarin 5 mg PO DIRECTED 11/16/17 11/16/17 History Exam Vital signs: Vital Signs 11/16/17 07:50 11/16/17 08:30 11/16/17 09:00 Temperature 97.2 F L Pulse Rate 75 73 79 Respiratory Rate 22 21 16 Blood Pressure 134/63 118/65 109/63 Pulse Oximetry 97 98 100 11/16/17 09:15 11/16/17 10:00 11/16/17 13:05 Temperature 97.9 F Pulse Rate 74 101 H Respiratory Rate 15 19 Blood Pressure 116/58 L 121/53 L Pulse Oximetry 98 99 99 11/16/17 13:20 11/16/17 13:22 11/16/17 17:30 Temperature 97.6 F 97.5 F L Pulse Rate 100 H 99 H 77 Respiratory Rate 16 21 18 Blood Pressure 140/60 138/63 139/65 Pulse Oximetry 100 99 Intake & Output 11/15/17 11/16/17 11/16/17 18:59 06:59 18:59 Intake Total 1102 / 1102 Output Total 150 / 150 Balance 952 / 952 Weight 92.533 kg Intake: IV 110 / 1102 NS Inj 1,000 ML @ 100 mls/hr IV 1000 / 1000 .CONT .Q10H [facility] Rx#:[id number] Vitamin K Inj 10 MG In NS Inj 102 / 102 50 ML @ 102 mls/hr IV.SIG ONCE ONE Rx#:[id number] Intake (Blood Product) Amt 0 / 0 Rbc As-3 Leukoreduced Unit 0 / 0 [id number] Output: Urine 150 / 150 Narrative: The patient appears anxious, he is slow to respond to my questions and is altered. HEENT dry oropharyngeal mucosa, Cardiovascular S1-S2, tachycardia Respiratory clear to auscultation bilaterally Abdomen soft, nontender, nondistended, normal bowel sounds Extremities no edema 2+ distal pulses in bilateral upper and lower extremities Neuro patient is not following my commands, he appears anxious. Full neuro examination is difficult to assess because the patient is altered. He is however moving all 4 extremities and sensation appears to be intact bilaterally. Results - Labs CBC & Chem 7: 11/16/17 08:30 11/16/17 08:30 Labs: Short CBC 11/16/17 Range/Units 08:30 WBC 8.7 (4.0-11.0) th/mm3 Hgb 7.7 L (13.0-17.0) gm/dL Hct 23.8 L (39.0-51.0) % Plt Count 253 (150-450) th/mm3 BMP 11/16/17 08:30 Sodium 142 Potassium 4.2 Chloride 106 Carbon Dioxide 21.4 BUN 82 H Creatinine 2.95 H Calcium 9.3 Liver Function 11/16/17 Range/Units 08:30 Total Bilirubin 0.5 (0.2-1.0) mg/dL AST 28 (15-37) U/L ALT 15 (12-78) U/L Alkaline Phosphatase 96 (45-117) U/L Albumin 3.7 (3.4-5.0) g/dL Urine 11/16/17 Range/Units 10:00 Urine Color Yellow (Yellw/Straw) Urine Clarity Clear (Clear) Urine pH 6.0 (5.0-8.5) Ur Specific [place] 1.012 (1.002-1.035) Urine Protein Negative (Neg-Trace) mg/dL Urine Glucose (UA) Negative (Negative) mg/dL - Imaging Impressions GI Bleed Scan Nuclear Medicine 11/16/17 00:00 CONCLUSION: Positive GI bleeding scan as above. Chest X-Ray 11/16/17 09:12 CONCLUSION: 1. Patchy opacity within the right lung base consistent with probable pneumonia. Clinical correlation is recommended. 2. Small right pleural effusion. 3. Cardiomegaly. Caprini VTE Risk Assessment Caprini VTE Risk Assessment: No/Low Risk (score <= 1) (acutely bleeding, no pharmacotherapy for dvt prophylaxis) Caprini Risk Assessment Model: Point Value = 1 Point Value = 2 Point Value = 3 Point Value = 5 Age 41-60 Minor surgery BMI > 25 kg/m2 Swollen legs Varicose veins or History of unexplained or recurrent spontaneous Oral contraceptives or hormone replacement Sepsis (< 1 month) Serious lung disease, including pneumonia (< 1 month) Abnormal pulmonary function Acute myocardial infarction Congestive heart failure (< 1 month) History of inflammatory bowel disease Medical patient at bed rest Age 61-74 Arthroscopic surgery Major open surgery (> 45 min) Laparoscopic surgery (> 45 min) Malignancy Confined to bed (> 72 hours) Immobilizing plaster cast Central venous access Age >= 75 History of VTE Family history of VTE Factor V Leiden Prothrombin [id number] Lupus anticoagulant Anticardiolipin antibodies Elevated serum homocysteine Heparin-induced thrombocytopenia Other congenital or acquired thrombophilia Stroke (< 1 month) Elective arthroplasty Hip, pelvis, or leg fracture Acute spinal cord injury (< 1 month) Prophylaxis Regimen: Total Risk Factor Score Risk Level Prophylaxis Regimen 0-1 Low Early ambulation 2 Moderate Order ONE of the following: *Sequential Compression Device (SCD) *Heparin 5000 units SQ BID 3-4 Higher Order ONE of the following medications: *Heparin 5000 units SQ TID *Enoxaparin/Lovenox 40 mg SQ daily (WT < 150 kg, CrCl > 30 mL/min) *Enoxaparin/Lovenox 30 mg SQ daily (WT < 150 kg, CrCl > 10-29 mL/min) *Enoxaparin/Lovenox 30 mg SQ BID (WT < 150 kg, CrCl > 30 mL/min) AND/OR *Sequential Compression Device (SCD) 5 or more Highest Order ONE of the following medications: *Heparin 5000 units SQ TID (Preferred with Epidurals) *Enoxaparin/Lovenox 40 mg SQ daily (WT < 150 kg, CrCl > 30 mL/min) *Enoxaparin/Lovenox 30 mg SQ daily (WT < 150 kg, CrCl > 10-29 mL/min) *Enoxaparin/Lovenox 30 mg SQ BID (WT < 150 kg, CrCl > 30 mL/min) AND *Sequential Compression Device (SCD) Assessment and Plan - Plan This patient is a 59-year-old male with an extensive cardiac history as mentioned above in HPI. He has also had 3 previous episodes of upper GI bleeds due to bleeding AVMs. The patient presented with maroon colored stool this morning and was brought into the emergency department by his for evaluation and care. He has a history of atrial fibrillation and mitral valve replacement and is on Coumadin. 1. Acute symptomatically loss anemia likely secondary to upper GI bleed 2. Acute encephalopathy likely secondary to elevated ammonia and upper GI bleed The patient presented with the symptoms mentioned above. Hemoglobin is 7.7 we will continue to monitor his hemoglobin closely. He is being transfused 1 unit PRBC he will be started on Protonix and octreotide. As per the patient's he has liver disease and it is not clear if the patient had esophageal varices on previous EGDs. He will be continued on IV fluids. Gastroenterology was consulted to evaluate the patient. We will reverse the patient's INR with vitamin K and FFP's. Current INR is 1.8. I will follow up with gastroenterology for recommendations, the patient will likely have an EGD within the next 24 hours. The patient's altered mental status is possibly secondary to the upper GI bleed or elevated ammonia level. We will continue treatment and monitor the patient's mental status. No pharmacotherapy for DVT prophylaxis as the patient is currently bleeding
--- NOTE | 2017-11-16 20:16 | ECG ---
Date Performed: 11/16/2017 Time Performed: 08:32:02 PTAGE: 67 years EKG: ATRIAL FIBRILLATION WITH ABERRANT CONDUCTION OR VENTRICULAR PREMATURE COMPLEXES INDETERMINA TE AXIS RIGHT BUNDLE BRANCH BLOCK ABNORMAL R WAVE PROGRESSION MODERATE T-WAVE ABNORMALITY LOW VOLTAGE ABNORMAL ECG NO PREVIOUS TRACING DOCTOR: Pedro Blanton Interpretating Date/Time 11/16/2017 20:15:14
[2017-11-16] MEDS: Sod Chloride 0.9% Inj 1,000 ML IV.CONT SCH (21:23)
[2017-11-16] MEDS ORDERED: Chlorhexidine Gluconate 2% 1 Pack (2 Cloths) TOPICAL ONE (21:43)
[2017-11-16] MEDS ORDERED: Metoprolol Tartrate 25 MG Tablet PO ONE (21:43)
[2017-11-16] MEDS ORDERED: Sodium Chlor 0.9% Inj 500 ML IV.SIG SCH (22:00)
[2017-11-17 00:24] LABS: Troponin I 0.04 ng/mL (0.02-0.05)
[2017-11-17 07:29] LABS: INR 1.4 Ratio; Prothrombin Time 13.7 sec (9.8-11.6)
[2017-11-17] MEDS: Sod Chloride 0.9% Inj 1,000 ML IV.CONT SCH ×2 (07:42→13:21)
[2017-11-17 10:05] LABS: Baso # (Auto) 0.1 th/mm3 (0.0-0.2); Baso % (Auto) 1.1 % (0.0-2.0); Eos % (Auto) 0.1 % (0.0-4.0); Lymph # (Auto) 0.3 th/mm3 (1.0-4.8); Lymph % (Auto) 4.3 % (9.0-44.0); Mean Corpuscular HGB Conc 32.7 % (32.0-36.0); Mean Corpuscular Hemoglobin 30.8 pg (27.0-34.0); Mean Corpuscular Volume 94.2 fL (80.0-100.0); Mean Platelet Volume 6.9 fL (7.0-11.0); Mono # (Auto) 0.8 th/mm3 (0.0-0.9); Neut # (Auto) 6.4 th/mm3 (1.8-7.7); Neut % (Auto) 83.5 % (16.0-70.0); Platelet Count 167 th/mm3 (150-450); Red Blood Count 2.23 mil/mm3 (4.50-5.90); White Blood Count 7.7 th/mm3 (4.0-11.0)
[2017-11-17 10:24] LABS: Hemoglobin 6.9 gm/dL (13.0-17.0)
--- NOTE | 2017-11-17 10:44 | XR ---
EXAM DATE: 11/17/2017 10:40 AM EDT AGE/SEX: 67 years / Male INDICATIONS: Short of breath and evaluate for pulmonary edema. CLINICAL DATA: This is the patient's subsequent encounter. Patient reports that signs and symptoms h ave been present for 2 days and indicates a pain score of 0/10. MEDICAL/SURGICAL HISTORY: Chronic obstructive pulmonary disease. Congestive heart failure. CAB G. Pacemaker. COMPARISON: [facility] [place] 1V SINGLE AP, 11/16/2017. . FINDINGS: There is slight interval worsening diffuse infiltrate of the right lung consistent with possible wors ening pneumonia. Clinical correlation is recommended. Small right pleural effusion is noted. The hear t is enlarged. The left lung is relatively clear. Median sternotomy wires are noted status post cardi ac surgery. Left subclavian dual lead pacemaker has its tips in right atrium and right ventricle. CONCLUSION: 1. Slight interval worsening of diffuse infiltrate of the right lung consistent with possible worsen ing pneumonia. Clinical correlation is recommended. 2. Small right pleural effusion. 3. Cardiomegaly. Electronically signed by: Thierno Roberts MD 11/17/2017 10:42 AM EDT
[2017-11-17] MEDS ORDERED: Esmolol Bolus Inj 100 MG/10 ML Vial IV.PUSH ONE (10:45)
--- NOTE | 2017-11-17 10:45 | P.PNGI ---
Subjective Interval history: Patient laying comfortably in bed confused at bedside no abdominal pain Physical Exam Vital signs: Vital Signs 11/16/17 13:05 11/16/17 13:20 11/16/17 13:22 Temperature 97.9 F 97.6 F 97.5 F L Pulse Rate 101 H 100 H 99 H Respiratory Rate 19 16 21 Blood Pressure 121/53 L 140/60 138/63 Pulse Oximetry 99 100 99 11/16/17 17:30 11/16/17 18:08 11/16/17 18:27 Temperature 97.4 F L 97.2 F L Pulse Rate 77 75 75 Respiratory Rate 18 16 17 Blood Pressure 139/65 145/64 H 134/64 Pulse Oximetry 93 L 11/16/17 19:00 11/16/17 20:00 11/16/17 22:05 Temperature 97.6 F 97.6 F Pulse Rate 77 108 H Respiratory Rate 22 22 Blood Pressure 135/61 155/90 H Pulse Oximetry 95 98 11/16/17 22:45 11/16/17 23:45 11/17/17 00:00 Temperature 97.8 F 97.8 F Pulse Rate 102 H 108 H 104 H Respiratory Rate 20 18 Blood Pressure 125/56 L 125/56 L Pulse Oximetry 11/17/17 00:05 11/17/17 00:10 11/17/17 02:42 Temperature 98.1 F 97.6 F Pulse Rate 102 H 107 H 109 H Respiratory Rate 20 22 Blood Pressure 150/65 H 99/54 L Pulse Oximetry 11/17/17 03:44 11/17/17 04:00 11/17/17 07:18 Temperature 97.4 F L 97.4 F L Pulse Rate 57 L 57 L 92 H Respiratory Rate 20 17 Blood Pressure 112/60 112/60 Pulse Oximetry 96 11/17/17 07:37 11/17/17 08:13 11/17/17 08:30 Temperature 97.6 F 97.2 F L 97.2 F L Pulse Rate 108 H 51 L 125 H Respiratory Rate 22 16 22 Blood Pressure 154/63 H 133/76 124/66 Pulse Oximetry 99 11/17/17 09:28 Temperature Pulse Rate Respiratory Rate Blood Pressure Pulse Oximetry 95 Intake & Output 11/16/17 11/17/17 11/17/17 18:59 06:59 18:59 Intake Total 1102 / 1102 300 / 300 0 / 0 Output Total 150 / 150 Balance 952 / 952 300 / 300 0 / 0 Weight 92.533 kg 92.3 kg Intake: IV 1102 / 1102 0 / 0 Protonix Inj 80 MG In NS Inj 0 / 0 100 ML @ 10 mls/hr IV.CONT CONT [facility] Rx#:[id number] NS Inj 1,000 ML @ 100 mls/hr IV 1000 / 1000 .CONT .Q10H [facility] Rx#:[id number] Vitamin K Inj 10 MG In NS Inj 102 / 102 50 ML @ 102 mls/hr IV.SIG ONCE ONE Rx#:[id number] Oral 0 / 0 Other 300 / 300 Liquid Plasma Cp2d Unit 100 / 100 [id number] Plasma Thawed 5 Day Cp2d Unit 100 / 100 [id number] Rbc As-3 Leukoreduced Unit 100 / 100 [id number] Intake (Blood Product) Amt 0 / 0 0 / 0 0 / 0 Liquid Plasma Cp2d Unit 0 / 0 0 / 0 [id number] Plasma Thawed 5 Day Cp2d Unit 0 / 0 [id number] Plasma Thawed 5 Day Cp2d Unit 0 / 0 [id number] Rbc As-3 Leukoreduced Unit 0 / 0 [id number] Rbc As-3 Leukoreduced Unit 0 / 0 [id number] Output: Urine 150 / 150 Other: # Voids 2 Date of Last Bowel Movement 11/17/17 11/17/17 # Bowel Movements 8 - Constitutional no acute distress - Routine HEENT Exam Head: Present: normocephalic Eye: Present: EOMI ENT: Present: mucous membranes moist - Routine Neck Exam Present: supple - Routine Respiratory Exam Present: CTA bilaterally - Routine Cardiovascular Exam Present: tachycardia, irregularly irregular - Routine Abdominal Exam Present: soft, normoactive bowel sounds. Absent: tenderness, distended, rebound , guarding - Routine Extremities Exam Absent: cyanosis, clubbing - Routine Skin Exam Present: dry, warm - Routine Neurological Exam Present: alert. Absent: oriented X3 Results - Labs CBC & Chem 7: 11/17/17 09:50 11/16/17 08:30 Laboratory Results - last 24 hr 11/16/17 11/16/17 11/16/17 08:30 08:30 11:07 WBC RBC Hgb Hct MCV MCH MCHC RDW Plt Count MPV Prelim Diff (Auto) Neut % (Auto) Lymph % (Auto) [place] % (Auto) Eos % (Auto) Baso % (Auto) Neut # (Auto) Lymph # (Auto) [place] # (Auto) Eos # (Auto) Baso # (Auto) WBC Differential Differential Comment PT INR Ammonia Total Creatine Kinase 61 Troponin I 0.04 Blood Type O Negative Blood Type Recheck Required Antibody Screen Positive H Antibody Identification Anti-K MTS Gel Crossmatch See Detail Blood Bank Comment 11/16/17 11/16/17 11/16/17 13:24 22:24 22:48 WBC RBC Hgb Hct MCV MCH MCHC RDW Plt Count MPV Prelim Diff (Auto) Neut % (Auto) Lymph % (Auto) [place] % (Auto) Eos % (Auto) Baso % (Auto) Neut # (Auto) Lymph # (Auto) [place] # (Auto) Eos # (Auto) Baso # (Auto) WBC Differential Differential Comment PT INR Ammonia Total Creatine Kinase Troponin I Blood Type Blood Type Recheck Antibody Screen Antibody Identification MTS Gel Crossmatch Blood Bank Comment 11/17/17 11/17/17 11/17/17 07:09 07:09 09:50 WBC 7.7 RBC 2.23 L Hgb 6.9 L* Hct 21.0 L MCV 94.2 MCH 30.8 MCHC 32.7 RDW 24.0 H D Plt Count 167 D MPV 6.9 L Prelim Diff (Auto) Neut % (Auto) 83.5 H Lymph % (Auto) 4.3 L [place] % (Auto) 11.0 H Eos % (Auto) 0.1 Baso % (Auto) 1.1 Neut # (Auto) 6.4 Lymph # (Auto) 0.3 L [place] # (Auto) 0.8 Eos # (Auto) 0.0 Baso # (Auto) 0.1 WBC Differential . Differential Comment Auto diff final PT 13.7 H INR 1.4 Ammonia 89 H Total Creatine Kinase Troponin I Blood Type Blood Type Recheck Antibody Screen Antibody Identification MTS Gel Crossmatch Blood Bank Comment - Imaging Impressions GI Bleed Scan Nuclear Medicine 11/16/17 00:00 CONCLUSION: Positive GI bleeding scan as above. Assessment and Plan - Plan Patient with known GI bleed from the small bowel Plan was to proceed with enteroscopy but he is currently in atrial fibrillation with rapid ventricular response and so he will need cardiac stabilization We will correct his coagulopathy and transfuse with blood We will continue to monitor closely We will reschedule enteroscopy for tomorrow Further recommendations shall depend on his hospital course
[2017-11-17] MEDS ORDERED: Digoxin Inj 500 MCG/2 ML Ampul IV.PUSH ONE (11:04)
--- NOTE | 2017-11-17 11:06 | P.PN ---
Subjective Interval history: CANCEL Physical Exam Vital signs: Vital Signs 11/16/17 13:05 11/16/17 13:20 11/16/17 13:22 Temperature 97.9 F 97.6 F 97.5 F L Pulse Rate 101 H 100 H 99 H Respiratory Rate 19 16 21 Blood Pressure 121/53 L 140/60 138/63 Pulse Oximetry 99 100 99 11/16/17 17:30 11/16/17 18:08 11/16/17 18:27 Temperature 97.4 F L 97.2 F L Pulse Rate 77 75 75 Respiratory Rate 18 16 17 Blood Pressure 139/65 145/64 H 134/64 Pulse Oximetry 93 L 11/16/17 19:00 11/16/17 20:00 11/16/17 22:05 Temperature 97.6 F 97.6 F Pulse Rate 77 108 H Respiratory Rate 22 22 Blood Pressure 135/61 155/90 H Pulse Oximetry 95 98 11/16/17 22:45 11/16/17 23:45 11/17/17 00:00 Temperature 97.8 F 97.8 F Pulse Rate 102 H 108 H 104 H Respiratory Rate 20 18 Blood Pressure 125/56 L 125/56 L Pulse Oximetry 11/17/17 00:05 11/17/17 00:10 11/17/17 02:42 Temperature 98.1 F 97.6 F Pulse Rate 102 H 107 H 109 H Respiratory Rate 20 22 Blood Pressure 150/65 H 99/54 L Pulse Oximetry 11/17/17 03:44 11/17/17 04:00 11/17/17 07:18 Temperature 97.4 F L 97.4 F L Pulse Rate 57 L 57 L 92 H Respiratory Rate 20 17 Blood Pressure 112/60 112/60 Pulse Oximetry 96 11/17/17 07:37 11/17/17 08:13 11/17/17 08:30 Temperature 97.6 F 97.2 F L 97.2 F L Pulse Rate 108 H 51 L 125 H Respiratory Rate 22 16 22 Blood Pressure 154/63 H 133/76 124/66 Pulse Oximetry 99 11/17/17 09:28 Temperature Pulse Rate Respiratory Rate Blood Pressure Pulse Oximetry 95 Intake & Output 11/16/17 11/17/17 11/17/17 18:59 06:59 18:59 Intake Total 1102 / 1102 300 / 300 0 / 0 Output Total 150 / 150 Balance 952 / 952 300 / 300 0 / 0 Weight 92.533 kg 92.3 kg Intake: IV 1102 / 1102 0 / 0 Protonix Inj 80 MG In NS Inj 0 / 0 100 ML @ 10 mls/hr IV.CONT CONT [facility] Rx#:[id number] NS Inj 1,000 ML @ 100 mls/hr IV 1000 / 1000 .CONT .Q10H [facility] Rx#:[id number] Vitamin K Inj 10 MG In NS Inj 102 / 102 50 ML @ 102 mls/hr IV.SIG ONCE ONE Rx#:[id number] Oral 0 / 0 Other 300 / 300 Liquid Plasma Cp2d Unit 100 / 100 [id number] Plasma Thawed 5 Day Cp2d Unit 100 / 100 [id number] Rbc As-3 Leukoreduced Unit 100 / 100 [id number] Intake (Blood Product) Amt 0 / 0 0 / 0 0 / 0 Liquid Plasma Cp2d Unit 0 / 0 0 / 0 [id number] Plasma Thawed 5 Day Cp2d Unit 0 / 0 [id number] Plasma Thawed 5 Day Cp2d Unit 0 / 0 [id number] Rbc As-3 Leukoreduced Unit 0 / 0 [id number] Rbc As-3 Leukoreduced Unit 0 / 0 [id number] Output: Urine 150 / 150 Other: # Voids 2 Date of Last Bowel Movement 11/17/17 11/17/17 # Bowel Movements 8 - Urinary Catheter Management Coude Cath placed during this visit: yes Reason for continuing: Chronic Urinary Retention Insertion date: 11/17/17 Insertion time: 10:35 Results - Labs CBC & Chem 7: 11/17/17 09:50 11/16/17 08:30 Laboratory Results - last 24 hr 11/16/17 11/16/17 11/16/17 08:30 08:30 11:07 WBC RBC Hgb Hct MCV MCH MCHC RDW Plt Count MPV Prelim Diff (Auto) Neut % (Auto) Lymph % (Auto) [place] % (Auto) Eos % (Auto) Baso % (Auto) Neut # (Auto) Lymph # (Auto) [place] # (Auto) Eos # (Auto) Baso # (Auto) WBC Differential Differential Comment PT INR Ammonia Total Creatine Kinase 61 Troponin I 0.04 Blood Type O Negative Blood Type Recheck Required Antibody Screen Positive H Antibody Identification Anti-K MTS Gel Crossmatch See Detail Blood Bank Comment 11/16/17 11/16/17 11/16/17 13:24 22:24 22:48 WBC RBC Hgb Hct MCV MCH MCHC RDW Plt Count MPV Prelim Diff (Auto) Neut % (Auto) Lymph % (Auto) [place] % (Auto) Eos % (Auto) Baso % (Auto) Neut # (Auto) Lymph # (Auto) [place] # (Auto) Eos # (Auto) Baso # (Auto) WBC Differential Differential Comment PT INR Ammonia Total Creatine Kinase Troponin I Blood Type Blood Type Recheck Antibody Screen Antibody Identification MTS Gel Crossmatch Blood Bank Comment 11/17/17 11/17/17 11/17/17 07:09 07:09 09:50 WBC 7.7 RBC 2.23 L Hgb 6.9 L* Hct 21.0 L MCV 94.2 MCH 30.8 MCHC 32.7 RDW 24.0 H D Plt Count 167 D MPV 6.9 L Prelim Diff (Auto) Neut % (Auto) 83.5 H Lymph % (Auto) 4.[address] [place] % (Auto) 11.0 H Eos % (Auto) 0.1 Baso % (Auto) 1.1 Neut # (Auto) 6.4 Lymph # (Auto) 0.[address] [place] # (Auto) 0.8 Eos # (Auto) 0.0 Baso # (Auto) 0.1 WBC Differential . Differential Comment Auto diff final PT 13.7 H INR 1.4 Ammonia 89 H Total Creatine Kinase Troponin I Blood Type Blood Type Recheck Antibody Screen Antibody Identification MTS Gel Crossmatch Blood Bank Comment - Imaging Impressions GI Bleed Scan Nuclear Medicine 11/16/17 00:00 CONCLUSION: Positive GI bleeding scan as above. Chest X-Ray 11/17/17 10:10 CONCLUSION: 1. Slight interval worsening of diffuse infiltrate of the right lung consistent with possible worsening pneumonia. Clinical correlation is recommended. 2. Small right pleural effusion. 3. Cardiomegaly.
--- NOTE | 2017-11-17 11:40 | MB ---
cc: Dieudonne Mills DO DATE: 11/17/2017 HISTORY OF PRESENT ILLNESS: This is a 67-year-old male who has a history of coronary artery disease, atrial fibrillation, and right-sided heart failure, who has had a history of EGDs in the past due to GI bleeding. He underwent an EGD today and request is made to place a Montes catheter. Due to the patient having meatal stenosis, the staff was unable to place the Montes. At the bedside, I was able to place a 14-German coude catheter with minimal difficulty into the bladder. PAST MEDICAL HISTORY: Again is noted for atrial fibrillation, anemia, heart disease, CHF, depression, diabetes, GI bleeding, gout, hypertension, high cholesterol, mitral valve prolapse, skin cancer. PAST SURGICAL HISTORY: CABG x 5, ablation for atrial fibrillation, coronary artery stents, tonsillectomy, cardiac catheterization, and mitral valve replacement. SOCIAL HISTORY: He is a former smoker, never drink, does not use drugs. FAMILY HISTORY: No family history of prostate cancer is noted. REVIEW OF SYSTEMS: Denies chest pain or shortness of breath at the time. Denies headaches, gait disturbances. Remaining review of systems reviewed and were negative. PHYSICAL EXAMINATION: VITAL SIGNS: Today, temperature 97, heart rate 151, respiratory rate 18, 120/69. GENERAL: He is a well-developed, well-nourished, 67-year-old male in no acute distress. HEENT: Normocephalic, atraumatic. Pupils equal, round, regular, and reactive to light. Extraocular movements intact. NECK: Supple. HEART: Regular rate and rhythm. LUNGS: Clear. ABDOMEN: Soft, nontender, nondistended. GENITOURINARY: Meatal stenosis is noted. A 14-German coude catheter inserted without difficulty at the bedside. Testes are descended. EXTREMITIES: Show no cyanosis, clubbing, or edema. ASSESSMENT AND PLAN: A 67-year-old male with meatal stenosis with Montes placed with minimal difficulty. Adhesions broken at the time of catheter placement. Maintain Montes catheter for now to monitor urine output. Can give a void trial in the future. Thank you for the consult and allowing me to participate in the care of this patient. DO TASIA eLster/kristel , 11:23 AM , 11:31 AM
--- NOTE | 2017-11-17 14:22 | P.CONCC ---
History of Present Illness Consult date: 11/17/17 Reason for Consult: A. fib with RVR, GI bleed Primary Care Provider: Michael Mcelroy Chief Complaint: Bloody stools History of Present Illness: 67-year-old male with a medical history significant for diabetes mellitus, hypertension, mitral valve replacement on anticoagulation who presented to the ER on 11/16 with maroon stools/rectal bleeding. He was admitted by hospitalist service. His hemoglobin was 7.7, INR 1.8 yesterday. He also has a history of atrial fibrillation and previous GI bleeds last one being 4 months ago where he had a enteroscopy and found to have AVMs. Patient was taken for EGD today however was in A. fib with RVR and hemoglobin of 6.9 this morning hence procedure was not performed in patient was admitted to the ICU with critical care consult. I evaluated the patient on his arrival from PACU. At that time his heart rate was 130s atrial fibrillation. He was awake and alert. He denied any chest pain or shortness of breath though he clearly looked tachypneic. He appeared very pale. He had been transfused FFP. PRBCs were being obtained at the time of my evaluation and I asked the nurse to transfuse the first unit wide open. Patient was not hypotensive at the time of my evaluation. History was obtained by reviewing records and discussion with nursing staff. Review of Systems All other systems reviewed negative except as stated in HPI PMFSH - History History Provided By: Significant Other - Medical History Medical History: Medical History (Last Updated 11/16/17 @ 08:53 by Chikka) A-fib Anemia CAD (coronary artery disease) CHF (congestive heart failure) CHF (congestive heart failure) Depression Diabetes GI bleed Gout High blood pressure High cholesterol History of blood transfusion Hypotension Low blood pressure Mitral valve prolapse Myocardial infarction Skin cancer - Surgical History Surgical History: Surgical History (Last Updated 11/16/17 @ 08:53 by Chikka) H/O mitral valve replacement History of cardiac cath Hx of tonsillectomy S/P CABG x 5 S/P ablation of atrial fibrillation Stented coronary artery - Tobacco History Second Hand Smoke Exposure: No Tobacco Use In Past 30 Days: No Smoking Status: Never smoker - Alcohol History How Often Do You Have a Drink Containing Alcohol: Never - Substance Use History Substance History: No History of Abuse - Travel History Recent Travel in the [facility] Within the Last 8 Weeks: No Recent Travel Out of the Country Within the Last 8 Weeks: No - Immunization History Tetanus Immunization: <5 Years Hx Influenza Vaccine This Season: Yes Medications and Allergies Active Medications: Active Medications Pantoprazole Sodium 80 mg/ (Sodium Chloride) 100 mls @ 10 mls/hr IV.CONT CONT DAMIAN Last Infusion: 11/17/17 07:42 Dose: 10 mls/hr Ceftriaxone Sodium 1,000 mg/ (Sodium Chloride) 100 mls @ 200 mls/hr IV.SIG Q24H DAMIAN Last Admin: 11/16/17 17:03 Dose: 200 mls/hr Octreotide Acetate 500 mcg/ (Sodium Chloride) 500.5 mls @ 25.02 mls/hr IV.CONT .Q20H1M [facility] Stop: 11/21/17 13:59 Last Admin: 11/16/17 17:04 Dose: 25 mcg/hr, 25.02 mls/hr Sodium Chloride (Ns Inj) 1,000 mls @ 100 mls/hr IV.CONT .Q10H [facility] Last Admin: 11/17/17 13:21 Dose: Not Given Lactated Ringer's (Lr 1000 Ml Inj) 1,000 mls @ 30 mls/hr IV.SIG .Q24H DAMIAN Stop: 11/17/17 21:44 Last Admin: 11/17/17 13:20 Dose: Not Given Sodium Chloride (Ns Inj) 500 mls @ 30 mls/hr IV.SIG .Q10H DAMIAN Last Admin: 11/17/17 13:20 Dose: Not Given Lactulose (Lactulose Liq) 30 ml PO BID [facility] Last Admin: 11/17/17 09:59 Dose: Not Given Lactulose (Lactulose Liq) 30 ml PO DAILY PRN PRN Reason: AGITATION Last Admin: 11/16/17 23:40 Dose: 30 ml Sodium Chloride (Ns Flush) 2 ml IV.FLUSH BID [facility] Last Admin: 11/17/17 09:59 Dose: Not Given Sodium Chloride (Ns Flush) 2 ml IV.FLUSH UNSCH PRN PRN Reason: FLUSH AFTER USING IV ACCESS Allergies Allergy/AdvReac Type Severity Reaction Status Date / Time atorvastatin Allergy Severe Muscle Pain Verified 11/16/17 08:47 fenofibrate Allergy Severe Joint Pain Verified 11/16/17 08:47 prednisone AdvReac Severe Bleeding Verified 11/16/17 08:47 Home Medications Medication Instructions Recorded Confirmed Type allopurinol 100 mg PO DAILY 11/16/17 11/16/17 History aspirin [Aspir-81] 81 mg PO DAILY 11/16/17 11/16/17 History bumetanide 4 mg PO TID 11/16/17 11/16/17 History doxycycline hyclate 100 mg PO BID 11/16/17 11/16/17 History insulin NPH isoph U-100 human 25 unit SUB-Q QPM 11/16/17 11/16/17 History [Novolin N NPH U-100 Insulin] insulin NPH isoph U-100 human 30 unit SUB-Q QAM 11/16/17 11/16/17 History [Novolin N NPH U-100 Insulin] metoprolol tartrate 12.5 mg PO BID 11/16/17 11/16/17 History pantoprazole 40 mg PO DAILY 11/16/17 11/16/17 History rosuvastatin 10 mg PO HS 11/16/17 11/16/17 History spironolactone 25 mg PO BID 11/16/17 11/16/17 History trazodone 25 mg PO HS 11/16/17 11/16/17 History warfarin 2.5 mg PO DIRECTED 11/16/17 11/16/17 History warfarin 5 mg PO DIRECTED 11/16/17 11/16/17 History Physical Exam Vital signs: Vital Signs 11/16/17 17:30 11/16/17 18:08 11/16/17 18:27 Temperature 97.4 F L 97.2 F L Pulse Rate 77 75 75 Respiratory Rate 18 16 17 Blood Pressure 139/65 145/64 H 134/64 Pulse Oximetry 93 L 11/16/17 19:00 11/16/17 20:00 11/16/17 22:05 Temperature 97.6 F 97.6 F Pulse Rate 77 108 H Respiratory Rate 22 22 Blood Pressure 135/61 155/90 H Pulse Oximetry 95 98 11/16/17 22:45 11/16/17 23:45 11/17/17 00:00 Temperature 97.8 F 97.8 F Pulse Rate 102 H 108 H 104 H Respiratory Rate 20 18 Blood Pressure 125/56 L 125/56 L Pulse Oximetry 11/17/17 00:05 11/17/17 00:10 11/17/17 02:42 Temperature 98.1 F 97.6 F Pulse Rate 102 H 107 H 109 H Respiratory Rate 20 22 Blood Pressure 150/65 H 99/54 L Pulse Oximetry 11/17/17 03:44 11/17/17 04:00 11/17/17 07:18 Temperature 97.4 F L 97.4 F L Pulse Rate 57 L 57 L 92 H Respiratory Rate 20 17 Blood Pressure 112/60 112/60 Pulse Oximetry 96 11/17/17 07:37 11/17/17 08:13 11/17/17 08:30 Temperature 97.6 F 97.2 F L 97.2 F L Pulse Rate 108 H 51 L 125 H Respiratory Rate 22 16 22 Blood Pressure 154/63 H 133/76 124/66 Pulse Oximetry 99 11/17/17 09:28 11/17/17 10:03 11/17/17 10:09 Temperature 96.9 F L Pulse Rate 168 H 77 Respiratory Rate 32 H 32 H Blood Pressure 144/71 H 159/69 H Pulse Oximetry 95 99 99 11/17/17 10:15 11/17/17 10:25 11/17/17 10:30 Temperature Pulse Rate 132 H 153 H 103 H Respiratory Rate 25 H 31 H 23 Blood Pressure 141/81 H 133/65 119/75 Pulse Oximetry 98 99 99 11/17/17 10:40 11/17/17 11:14 11/17/17 12:09 Temperature 97.7 F 97.5 F L Pulse Rate 144 H 151 H 150 H Respiratory Rate 26 H 18 18 Blood Pressure 106/68 120/69 106/69 Pulse Oximetry 99 11/17/17 12:32 11/17/17 13:00 Temperature 97.4 F L Pulse Rate 136 H 119 H Respiratory Rate 24 16 Blood Pressure 150/65 H 132/70 Pulse Oximetry 100 Intake & Output 11/16/17 11/17/17 11/17/17 18:59 06:59 18:59 Intake Total 1102 / 1102 300 / 300 309 / 309 Output Total 150 / 150 200 / 200 Balance 952 / 952 300 / 300 109 / 109 Weight 92.533 kg 92.3 kg Intake: IV 1102 / 1102 0 / 0 Protonix Inj 80 MG In NS Inj 0 / 0 100 ML @ 10 mls/hr IV.CONT CONT DAMIAN Rx#:[id number] NS Inj 1,000 ML @ 100 mls/hr IV 1000 / 1000 .CONT .Q10H DAMIAN Rx#:[id number] Vitamin K Inj 10 MG In NS Inj 102 / 102 50 ML @ 102 mls/hr IV.SIG ONCE ONE Rx#:[id number] Oral 0 / 0 0 / 0 Other 300 / 300 Liquid Plasma Cp2d Unit 100 / 100 [id number] Plasma Thawed 5 Day Cp2d Unit 100 / 100 [id number] Rbc As-3 Leukoreduced Unit 100 / 100 [id number] Intake (Blood Product) Amt 0 / 0 0 / 0 309 / 309 Liquid Plasma Cp2d Unit 0 / 0 0 / 0 [id number] Plasma Thawed 5 Day Cp2d Unit 0 / 0 [id number] Plasma Thawed 5 Day Cp2d Unit 0 / 0 [id number] Plasma Thawed 5 Day Cp2d Unit 309 / 309 [id number] Rbc As-3 Leukoreduced Unit 0 / 0 [id number] Rbc As-3 Leukoreduced Unit 0 / 0 [id number] Rbc As-3 Leukoreduced Unit 0 / 0 [id number] Output: Urine 150 / 150 Urine Amount (Catheter) 200 / 200 Coude 200 / 200 Other: # Voids 2 Date of Last Bowel Movement 11/17/17 11/17/17 # Bowel Movements 8 Narrative: GENERAL: Pleasantly confused 67 yo male, in nad. SKIN: Warm and dry. HEENT: Moist mucous membranes. CARDIOVASCULAR: Tachycardic. S1-S2 irregularly irregular RESPIRATORY: Breath sounds equal bilaterally. No accessory muscle use. Scattered rhonchi bilaterally, no wheezing GASTROINTESTINAL: Abdomen soft, non-tender, nondistended. MUSCULOSKELETAL: No cyanosis, or edema. - Urinary Catheter Management Coude Cath placed during this visit: yes Reason for continuing: Chronic Urinary Retention Insertion date: 11/17/17 Insertion time: 10:35 Assessment and Plan - Assessment and Plan Plan: 67-year-old male with: GI bleed (bleeding scan positive for small bowel location) CAD status post previous CABG A. fib with RVR Hypertension Diabetes mellitus History of mitral valve replacement History of CHF Depression Plan: -Admit to ICU -Transfuse PRBCs to keep hemoglobin above 8 g percent. Follow serial H&H. Vitamin K/FFP to correct coagulopathy. -Protonix/octreotide GTT per GI. -GI planning EGD/enteroscopy -Hold all antihypertensives. -Digoxin 0.5 mg IV 1 dose for rate control. A. fib RVR secondary to anemia and active GI bleeding. Transfusion should help heart rate. -Strict intake output, monitor and replete electrolytes, follow BUN/creatinine. -Watch for hypoglycemia, SSI for glycemic control as needed -SCDs for DVT prophylaxis. No subcu heparin or Lovenox in view of GI bleeding Condition critical Time spent on critical care excluding procedures 50 minutes
[2017-11-17] MEDS: Octreotide Inj 500 MCG in Sodium Chlor 0.9% Inj 500 ML IV.CONT SCH (14:27)
[2017-11-17] MEDS: Metoprolol Inj 5 MG/5 ML Vial IV.PUSH SCH ×2 (18:49→23:54)
[2017-11-17 18:58] LABS: Hematocrit 30.3 % (39.0-51.0); Hemoglobin 10.1 gm/dL (13.0-17.0)
[2017-11-17 19:11] LABS: Activated Partial Thrombo Time 24.3 sec (24.3-30.1); INR 1.2 Ratio; Prothrombin Time 12.6 sec (9.8-11.6)
[2017-11-17 19:25] LABS: Calcium 9.3 mg/dL (8.5-10.1); Carbon Dioxide 18.9 meq/L (21.0-32.0)
--- NOTE | 2017-11-17 20:44 | ECG ---
Date Performed: 11/17/2017 Time Performed: 10:14:45 PTAGE: 67 years EKG: SUSPECT ATRIAL FIBRILLATION WITH INCREASED VENTRICULAR RATE LOW LIMB LEAD VOLTAGE Right bun dle branch block with secondary ST-T wave changes LOW VOLTAGE THROUGHOUT Since the previous tracing, no significant change noted ABNORMAL ECG PREVIOUS TRACING : 11/16/2017 08.32 DOCTOR: Jose Guerrero Interpretating Date/Time 11/17/2017 20:43:25
[2017-11-18 00:07] LABS: Hematocrit 31.6 % (39.0-51.0); Hemoglobin 10.3 gm/dL (13.0-17.0)
[2017-11-18] MEDS ORDERED: Chlorhexidine Gluconate 2% 1 Pack (2 Cloths) TOPICAL PRN (04:00)
[2017-11-18 07:04] LABS: Hematocrit 30.2 % (39.0-51.0); Hemoglobin 10.1 gm/dL (13.0-17.0); Mean Corpuscular HGB Conc 33.4 % (32.0-36.0); Mean Corpuscular Hemoglobin 30.8 pg (27.0-34.0); Mean Corpuscular Volume 92.3 fL (80.0-100.0); Mean Platelet Volume 7.2 fL (7.0-11.0); Platelet Count 161 th/mm3 (150-450); Red Blood Count 3.27 mil/mm3 (4.50-5.90); Red Cell Distribution Width 21.5 % (11.6-17.2); White Blood Count 9.9 th/mm3 (4.0-11.0)
[2017-11-18 07:22] LABS: Albumin 3.5 g/dL (3.4-5.0); Anion Gap 12 meq/L (5-15); Aspartate Aminotransferase 24 U/L (15-37); Blood Urea Nitrogen 58 mg/dL (7-18); Calcium 9.1 mg/dL (8.5-10.1); Carbon Dioxide 22.7 meq/L (21.0-32.0); Chloride 116 meq/L (98-107); Glomerular Filtration Rate 27 mL/min (>89); Glucose,Random 105 mg/dL (74-106); Potassium 3.9 meq/L (3.5-5.1); Sodium 151 meq/L (136-145)
[2017-11-18 07:26] LABS: Alanine Aminotransferase 16 U/L (12-78); Alkaline Phosphatase 98 U/L (45-117); Total Protein 6.6 g/dL (6.4-8.2)
--- NOTE | 2017-11-18 10:07 | P.PNGI ---
Subjective Interval history: Patient is resting in the bed eyes closed, currently on CPAP through the night. Plan is transition back to oxygen per nasal cannula at 4 or 5 L. in the room currently his historian. Heart rate regular with PVCs in the high 80s low 90s. No obvious abdominal pain, Tentative plan for enteroscopy this a.m. if patient is stable <Laxmi Izaguirre - Last Filed: 11/18/17 10:10> Physical Exam Vital signs: Vital Signs 11/17/17 10:09 11/17/17 10:15 11/17/17 10:25 Temperature Pulse Rate 77 132 H 153 H Respiratory Rate 32 H 25 H 31 H Blood Pressure 159/69 H 141/81 H 133/65 Pulse Oximetry 99 98 99 11/17/17 10:30 11/17/17 10:40 11/17/17 11:14 Temperature 97.7 F Pulse Rate 103 H 144 H 151 H Respiratory Rate 23 26 H 18 Blood Pressure 119/75 106/68 120/69 Pulse Oximetry 99 99 11/17/17 12:09 11/17/17 12:32 11/17/17 13:00 Temperature 97.5 F L 97.4 F L Pulse Rate 150 H 136 H 119 H Respiratory Rate 18 24 16 Blood Pressure 106/69 150/65 H 132/70 Pulse Oximetry 100 11/17/17 13:17 11/17/17 13:20 11/17/17 13:30 Temperature Pulse Rate 137 H 109 H 116 H Respiratory Rate 26 H 27 H 38 H Blood Pressure 142/69 H 129/61 Pulse Oximetry 98 97 100 11/17/17 13:40 11/17/17 13:50 11/17/17 14:00 Temperature 97.7 F Pulse Rate 120 H 110 H 138 H Respiratory Rate 39 H 37 H 48 H Blood Pressure 136/77 140/69 113/57 L Pulse Oximetry 95 97 98 11/17/17 14:10 11/17/17 14:20 11/17/17 14:29 Temperature 97.5 F L Pulse Rate 109 H 140 H 108 H Respiratory Rate 27 H 45 H 22 Blood Pressure 126/67 119/64 131/62 Pulse Oximetry 97 100 11/17/17 14:30 11/17/17 14:40 11/17/17 14:50 Temperature Pulse Rate 109 H 135 H 109 H Respiratory Rate 23 27 H 30 H Blood Pressure 131/62 163/76 H 131/66 Pulse Oximetry 100 100 98 11/17/17 15:00 11/17/17 15:10 11/17/17 15:21 Temperature Pulse Rate 136 H 138 H 135 H Respiratory Rate 29 H 37 H 35 H Blood Pressure 126/64 141/87 H 141/92 H Pulse Oximetry 96 98 100 11/17/17 15:30 11/17/17 15:41 11/17/17 15:50 Temperature Pulse Rate 131 H 101 H 123 H Respiratory Rate 30 H 25 H 30 H Blood Pressure 150/90 H 128/83 146/102 H Pulse Oximetry 94 L 100 100 11/17/17 16:00 11/17/17 16:10 11/17/17 16:20 Temperature Pulse Rate 111 H 125 H 112 H Respiratory Rate 25 H 27 H 27 H Blood Pressure 152/90 H 136/69 130/80 Pulse Oximetry 100 99 100 11/17/17 16:30 11/17/17 16:41 11/17/17 16:50 Temperature 97.7 F Pulse Rate 141 H 155 H 140 H Respiratory Rate 25 H 42 H 23 Blood Pressure 144/63 H 111/71 106/66 Pulse Oximetry 100 91 L 100 11/17/17 17:00 11/17/17 17:10 11/17/17 17:20 Temperature Pulse Rate 139 H 142 H 133 H Respiratory Rate 25 H 27 H 21 Blood Pressure 127/82 138/92 H 152/65 H Pulse Oximetry 100 97 99 11/17/17 17:30 11/17/17 17:40 11/17/17 17:50 Temperature Pulse Rate 143 H 136 H 106 H Respiratory Rate 21 17 17 Blood Pressure 126/62 131/81 128/81 Pulse Oximetry 97 95 100 11/17/17 18:00 11/17/17 18:10 11/17/17 18:20 Temperature Pulse Rate 114 H 105 H 125 H Respiratory Rate 19 19 26 H Blood Pressure 139/92 H 137/70 165/70 H Pulse Oximetry 100 100 100 11/17/17 18:26 11/17/17 18:41 11/17/17 18:50 Temperature Pulse Rate 119 H 99 H Respiratory Rate 22 23 Blood Pressure 163/78 H 148/72 H Pulse Oximetry 99 100 97 11/17/17 19:00 11/17/17 19:10 11/17/17 19:20 Temperature Pulse Rate 75 75 76 Respiratory Rate 16 24 22 Blood Pressure 152/68 H 152/66 H 150/68 H Pulse Oximetry 100 100 100 11/17/17 19:30 11/17/17 19:40 11/17/17 19:50 Temperature Pulse Rate 75 76 75 Respiratory Rate 33 H 28 H 25 H Blood Pressure 152/74 H 154/68 H 133/62 Pulse Oximetry 100 100 98 11/17/17 20:00 11/17/17 20:10 11/17/17 20:20 Temperature 97.7 F Pulse Rate 75 76 76 Respiratory Rate 32 H 27 H 29 H Blood Pressure 153/65 H 146/66 H 142/84 H Pulse Oximetry 100 100 100 11/17/17 20:30 11/17/17 20:40 11/17/17 21:00 Temperature Pulse Rate 76 76 77 Respiratory Rate 30 H 33 H 31 H Blood Pressure 143/64 H 138/68 Pulse Oximetry 100 100 100 11/17/17 21:34 11/17/17 22:00 11/17/17 23:00 Temperature Pulse Rate 76 77 81 Respiratory Rate 22 46 H 26 H Blood Pressure 162/70 H 135/88 144/71 H Pulse Oximetry 100 100 100 11/18/17 00:00 11/18/17 01:00 11/18/17 02:00 Temperature 97.8 F Pulse Rate 80 77 78 Respiratory Rate 27 H 26 H 47 H Blood Pressure 164/71 H 127/72 139/62 Pulse Oximetry 100 92 L 93 L 11/18/17 03:00 11/18/17 04:00 11/18/17 05:00 Temperature 98.7 F Pulse Rate 78 77 81 Respiratory Rate 30 H 26 H 17 Blood Pressure 168/70 H 122/57 L 123/59 L Pulse Oximetry 100 100 92 L 11/18/17 06:00 11/18/17 07:00 11/18/17 08:09 Temperature Pulse Rate 80 78 Respiratory Rate 16 26 H Blood Pressure 143/63 H 146/65 H Pulse Oximetry 100 100 96 Intake & Output 11/17/17 11/18/17 11/18/17 18:59 06:59 18:59 Intake Total 1961.5 / 1961.5 30 / 30 Output Total 1300 / 1300 2600 / 2600 Balance 661.5 / 661.5 -2570 / -2570 Weight 138 kg Intake: IV 600.5 / 600.5 SandoSTATIN Inj 500 MCG In NS 500.5 / 500.5 Inj 500 ML @ 25 MCG/HR 25.02 mls/hr IV.CONT .Q20H1M [facility] Rx#: [id number] Protonix Inj 80 MG In NS Inj 0 / 0 100 ML @ 10 mls/hr IV.CONT CONT [facility] Rx#:[id number] Rocephin Inj 1,000 MG In NS Inj 100 / 100 100 ML @ 200 mls/hr IV.SIG Q24H [facility] Rx#:[id number] Oral 0 / 0 30 / 30 Intake (Blood Product) Amt 1361 / 1361 Plasma Thawed 5 Day Cp2d Unit 252 / 252 [id number] Plasma Thawed 5 Day Cp2d Unit 309 / 309 [id number] Rbc As-3 Leukoreduced Unit 400 / 400 [id number] Rbc Cp2d Leukoreduced Unit 400 / 400 [id number] Output: Urine Amount (Catheter) 1300 / 1300 2600 / 2600 Coude 1300 / 1300 Indwelling Urethral Catheter 2600 / 2600 Other: Date of Last Bowel Movement 11/17/17 11/18/17 # Bowel Movements 2 # Incontinent Bowel Movements 1 - Constitutional mild distress (Currently being managed on CPAP during the night), cachectic, chronically ill appearing - Routine HEENT Exam Head: Present: normocephalic ENT: Present: mucous membranes moist - Routine Respiratory Exam Present: accessory muscle use (Low volumes but no obvious rales or rhonchi or shortness of breath at rest, CPAP) - Routine Abdominal Exam Present: soft, normoactive bowel sounds (Round, no obvious distention, no obvious bleeding) - Urinary Catheter Management Coude Cath placed during this visit: yes Reason for continuing: Other continuation reason Insertion date: 11/17/17 Insertion time: 10:35 Indwelling Urethral Catheter Cath placed during this visit: no <Laxmi Izaguirre - Last Filed: 11/18/17 10:10> Vital signs: Vital Signs 11/18/17 10:53 11/18/17 11:00 11/18/17 11:57 Temperature 98.1 F 97.4 F L Pulse Rate 78 78 80 Respiratory Rate 18 18 17 Blood Pressure 135/64 125/58 L 117/61 Pulse Oximetry 100 100 100 11/18/17 12:15 11/18/17 12:24 11/18/17 12:25 Temperature 97.5 F L Pulse Rate 78 84 74 Respiratory Rate 17 16 17 Blood Pressure 116/66 126/66 Pulse Oximetry 100 100 98 11/18/17 13:00 11/18/17 14:00 11/18/17 14:57 Temperature Pulse Rate 81 79 79 Respiratory Rate 28 H 23 22 Blood Pressure 132/63 Pulse Oximetry 100 100 100 11/18/17 15:00 11/18/17 16:00 11/18/17 17:00 Temperature 98.1 F Pulse Rate 84 83 75 Respiratory Rate 16 26 H 18 Blood Pressure 121/56 L 144/67 H 128/56 L Pulse Oximetry 100 100 100 11/18/17 18:58 11/18/17 20:00 11/19/17 00:00 Temperature 98.9 F 97.8 F Pulse Rate 75 76 Respiratory Rate 17 15 Blood Pressure 113/50 L 97/48 L Pulse Oximetry 100 95 100 11/19/17 04:00 11/19/17 08:00 Temperature 97.9 F 98.0 F Pulse Rate 73 79 Respiratory Rate 14 20 Blood Pressure 101/49 L 125/62 Pulse Oximetry 99 97 Intake & Output 11/18/17 11/19/17 11/19/17 18:59 06:59 18:59 Intake Total 1740 / 1740 Output Total 900 / 900 700 / 700 Balance 840 / 840 -700 / -700 Weight 85.3 kg 85 kg Intake: IV 100 / 100 Rocephin Inj 1,000 MG In NS Inj 100 / 100 100 ML @ 200 mls/hr IV.SIG Q24H [facility] Rx#:[id number] Oral 840 / 840 Anesthesia Amount 800 / 800 Output: Urine 550 / 550 700 / 700 Urine Amount (Catheter) 350 / 350 Indwelling Urethral Catheter 350 / 350 Other: Date of Last Bowel Movement 11/18/17 11/18/17 # Bowel Movements 2 1 # Incontinent Bowel Movements 2 3 Weight On Admission 85.3 kg - Urinary Catheter Management Coude Cath placed during this visit: no Indwelling Urethral Catheter Cath placed during this visit: no <Roddy Patel E - Last Filed: 11/19/17 10:16> Results - Labs CBC & Chem 7: 11/18/17 04:54 11/18/17 04:54 Laboratory Results - last 24 hr 11/16/17 11/17/17 11/17/17 22:48 09:50 10:38 WBC 7.7 RBC 2.23 L Hgb 6.9 L* Hct 21.0 L MCV 94.2 MCH 30.8 MCHC 32.7 RDW 24.0 H D Plt Count 167 D MPV 6.9 L Prelim Diff (Auto) Neut % (Auto) 83.5 H Lymph % (Auto) 4.3 L Tripp % (Auto) 11.0 H Eos % (Auto) 0.1 Baso % (Auto) 1.1 Neut # (Auto) 6.4 Lymph # (Auto) 0.3 L Tripp # (Auto) 0.8 Eos # (Auto) 0.0 Baso # (Auto) 0.1 WBC Differential . Differential Comment Auto diff final PT INR APTT Sodium Potassium Chloride Carbon Dioxide Anion Gap BUN Creatinine Estimated GFR POC Glucose Random Glucose Calcium Total Bilirubin AST ALT Alkaline Phosphatase Total Protein Albumin Nasal Screen MRSA (PCR) MTS Gel Crossmatch See Detail Blood Bank Comment Bld Prod Order Comment 11/17/17 11/17/17 11/17/17 18:00 18:08 18:08 WBC RBC Hgb 10.1 L D Hct 30.3 L MCV MCH MCHC RDW Plt Count MPV Prelim Diff (Auto) Neut % (Auto) Lymph % (Auto) Tripp % (Auto) Eos % (Auto) Baso % (Auto) Neut # (Auto) Lymph # (Auto) Tripp # (Auto) Eos # (Auto) Baso # (Auto) WBC Differential Differential Comment PT 12.6 H INR 1.2 APTT 24.3 Sodium 150 H Potassium 4.0 Chloride 115 H D Carbon Dioxide 18.9 L Anion Gap 16 H BUN 58 H Creatinine 2.42 H Estimated GFR 27 L POC Glucose Random Glucose 108 H Calcium 9.3 Total Bilirubin AST ALT Alkaline Phosphatase Total Protein Albumin Nasal Screen MRSA (PCR) MTS Gel Crossmatch Blood Bank Comment Bld Prod Order Comment 11/17/17 11/18/17 11/18/17 18:40 00:00 00:16 WBC RBC Hgb 10.3 L Hct 31.6 L MCV MCH MCHC RDW Plt Count MPV Prelim Diff (Auto) Neut % (Auto) Lymph % (Auto) Tripp % (Auto) Eos % (Auto) Baso % (Auto) Neut # (Auto) Lymph # (Auto) Tripp # (Auto) Eos # (Auto) Baso # (Auto) WBC Differential Differential Comment PT INR APTT Sodium Potassium Chloride Carbon Dioxide Anion Gap BUN Creatinine Estimated GFR POC Glucose 138 H Random Glucose Calcium Total Bilirubin AST ALT Alkaline Phosphatase Total Protein Albumin Nasal Screen MRSA (PCR) Not detected MTS Gel Crossmatch Blood Bank Comment Bld Prod Order Comment 11/18/17 11/18/17 04:54 04:54 WBC 9.9 RBC 3.27 L Hgb 10.1 L Hct 30.2 L MCV 92.3 MCH 30.8 MCHC 33.4 RDW 21.5 H D Plt Count 161 MPV 7.2 Prelim Diff (Auto) Neut % (Auto) Lymph % (Auto) Tripp % (Auto) Eos % (Auto) Baso % (Auto) Neut # (Auto) Lymph # (Auto) Tripp # (Auto) Eos # (Auto) Baso # (Auto) WBC Differential Differential Comment PT INR APTT Sodium 151 H Potassium 3.9 Chloride 116 H Carbon Dioxide 22.7 Anion Gap 12 BUN 58 H Creatinine 2.41 H Estimated GFR 27 L POC Glucose Random Glucose 105 Calcium 9.1 Total Bilirubin 0.9 AST 24 ALT 16 Alkaline Phosphatase 98 Total Protein 6.6 Albumin 3.5 Nasal Screen MRSA (PCR) MTS Gel Crossmatch Blood Bank Comment Bld Prod Order Comment - Imaging Impressions Chest X-Ray 11/17/17 10:10 CONCLUSION: 1. Slight interval worsening of diffuse infiltrate of the right lung consistent with possible worsening pneumonia. Clinical correlation is recommended. 2. Small right pleural effusion. 3. Cardiomegaly. <Laxmi Izaguirre - Last Filed: 11/18/17 10:10> - Labs CBC & Chem 7: 11/19/17 04:54 11/18/17 04:54 Laboratory Results - last 24 hr 11/18/17 11/18/17 11/18/17 11:02 12:14 12:36 WBC RBC Hgb Hct MCV MCH MCHC RDW Plt Count MPV POC Glucose 95 110 118 H 11/18/17 11/19/17 11/19/17 13:26 04:54 07:37 WBC 8.2 RBC 3.00 L Hgb 10.3 L 9.2 L Hct 31.7 L 28.5 L MCV 95.0 MCH 30.8 MCHC 32.4 RDW 22.7 H Plt Count 137 L MPV 7.0 POC Glucose 132 H <Roddy Patel E - Last Filed: 11/19/17 10:16> Assessment and Plan - Plan Maroon rectal bleeding with a mixture of some dark blood over the past 24 hours patient does have significant history of GI bleeding, hypertension, diabetes and some baseline altered mental status according to the record. weakness and fatigue and some nausea without vomiting. is in the room and is currently giving the history on the patient secondary to patient's altered mental status. Patient currently also on Coumadin therapy and is managed by Dr. Peck, ([phone]). Cardiology for mitral valve replacement and atrial fibrillation. Patient is also on iron infusions and he is received a total of 3 in the past few weeks. 2 of the iron infusions were given this past week before he left for vacation. Hyperammonemia ,mildly confused and restless at times patient's ammonia level is 98, PT/INR 1.8, and hemoglobin is 7.7 patient is currently receiving packed RBC transfusion. states that patient had similar incidents approximately 4 months ago and had EGD colonoscopy done. 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 denies any alcohol use and no family history of colon cancer. Patient does appear pale, and altered mental status which is probably related to his elevated ammonia level. Gastroenterology has been consulted to assist with this patient's acute symptoms as well as his plan of care. Coagulopathy with INR 1.8, patient was given vitamin K dose in the emergency room setting, currently has first unit of packed RBCs transfusing, 2 units ordered. Current plan of care is to controlled coagulopathy and decrease INR to 145 or less. Plan for bleeding scan this p.m. if patient can tolerate, and planned for 2 units of FFP to be initiated at a 100 on 11/17/2017. Plan for EGD in a.m. and PT/INR check and evaluation. Explained plan of care to and she agrees 11/18/2017 patient is resting in the bed currently has a heart rate in the high 80s to low 90 range, sinus rhythm with PVCs. Patient has no obvious shortness of breath eyes are closed still has some mild lethargy. Currently being maintained on CPAP during the night. But needs to be transitioned back to oxygen per nasal cannula at 4-5 L or what is needed to maintain patient sat greater than 92. Tentative plan is for enteroscopy this a.m. as long as patient is stable from his respiratory status. Current heart rate appears to be stable and managed on metoprolol. is in the room all information discussed with her. Currently hemoglobin is stable at 10.1, PT/INR 1.2. AST has been following patient recommendations for mechanical soft diet nectar thick. Currently n.p.o. Plan Diet n.p.o. Patient is currently on CPAP and needs to be transitioned to oxygen per nasal cannula at 4-5 L. If patient cannot maintain O2 saturation greater than 92, call GI lab and consider holding enteroscopy today otherwise plan for this a.m. Monitor labs with special attention to hemoglobin Monitor for any obvious bleeding and transfuse as needed Further recommendations to follow PPI Patient was seen per myself and Dr. Patel, note was written on his behalf <Laxmi Izaguirre M - Last Filed: 11/18/17 10:10> - Plan Patient seen and examined Agree with above Continue with current supportive care Monitor labs We will proceed with enteroscopy next <Roddy Patel E - Last Filed: 11/19/17 10:16>
[2017-11-18] MEDS ORDERED: Lidocaine PF 1% Inj 5 ML Syringe OTHER ONE (11:00)
[2017-11-18] MEDS ORDERED: Ketamine Inj 50 MG/5 ML Syringe IV.PUSH ONE (11:06)
--- NOTE | 2017-11-18 11:52 | P.PCN ---
Date of procedure: 11/18/17 Pre-op diagnosis: GI bleed from a small bowel source is noted on a bleeding scan Procedure: PROCEDURE PERFORMED Enteroscopy with cautery PROCEDURE: The procedure, risks and benefits were discussed with Patient/POA and informed consent was obtained. Anesthesia sedated Patient with Diprivan. Patient was placed in the left lateral decubitus position. Enteroscopy: The Pentax videoscope was introduced through the oropharynx and advanced to the distal jejunum under direct visualization. Retroflexion was performed in the stomach. FINDINGS: The esophagus this appeared to be unremarkable with normal limits although as I introduced the scope there was evidence of recent bleeding and blood in the pharynx and the upper portions of the esophagus this was washed and cleaned no further blood was seen thereafter most likely the source is nasopharyngeal The stomach this appeared to be unremarkable with normal limits there was some evidence of the swallowed blood but once it was washed there was no blood or bleeding and no irregularities in the stomach to explain bleeding The duodenum this appeared to be unremarkable and within normal limits The jejunum they were 3 minute AVMs noted in the jejunum they were cauterized there was no active bleeding otherwise mucosa was unremarkable ESTIMATED BLOOD LOSS: Minimal SPECIMENS REMOVED: None COMPLICATIONS: None IMPRESSION: Jejunal AVMs PLAN: Continue with current supportive care Monitor labs and transfuse as needed Avoid anticoagulation at this point Advance diet as tolerated Anesthesia: MAC Surgeon: Roddy Patel Condition: stable Disposition: ICU
[2017-11-18] MEDS: Metoprolol Inj 5 MG/5 ML Vial IV.PUSH SCH ×2 (12:32→15:59)
[2017-11-18] MEDS: Octreotide Inj 500 MCG in Sodium Chlor 0.9% Inj 500 ML IV.CONT SCH (13:06)
[2017-11-18 14:20] LABS: Hematocrit 31.7 % (39.0-51.0); Hemoglobin 10.3 gm/dL (13.0-17.0)
[2017-11-18] MEDS: Metoprolol Tartrate 25 MG Tablet PO SCH ×2 (15:02→18:07)
[2017-11-18] MEDS: Chlorhexidine Gluconate 2% 1 Pack (2 Cloths) TOPICAL SCH (15:03)
[2017-11-19] MEDS: Chlorhexidine Gluconate 2% 1 Pack (2 Cloths) TOPICAL SCH (03:22)
[2017-11-19 05:32] LABS: Hematocrit 28.5 % (39.0-51.0); Hemoglobin 9.2 gm/dL (13.0-17.0); Mean Corpuscular HGB Conc 32.4 % (32.0-36.0); Mean Corpuscular Hemoglobin 30.8 pg (27.0-34.0); Platelet Count 137 th/mm3 (150-450); Red Cell Distribution Width 22.7 % (11.6-17.2); White Blood Count 8.2 th/mm3 (4.0-11.0)
[2017-11-19] MEDS: Metoprolol Tartrate 25 MG Tablet PO SCH ×3 (09:06→18:20)
[2017-11-19] MEDS: Pantoprazole Sodium 20 MG DR Tablet PO SCH (09:16)
--- NOTE | 2017-11-19 11:55 | P.PNGI ---
Subjective Interval history: Patient is sitting up in the chair alert oriented, appears to be feeling so much better, appetite returning, no acute nausea or vomiting No abdominal pain, no obvious bleeding, stool noted to be dark brown <Laxmi Izaguirre - Last Filed: 11/19/17 11:55> Physical Exam Vital signs: Vital Signs 11/18/17 11:57 11/18/17 12:15 11/18/17 12:24 Temperature 97.4 F L Pulse Rate 80 78 84 Respiratory Rate 17 17 16 Blood Pressure 117/61 116/66 Pulse Oximetry 100 100 100 11/18/17 12:25 11/18/17 13:00 11/18/17 14:00 Temperature 97.5 F L Pulse Rate 74 81 79 Respiratory Rate 17 28 H 23 Blood Pressure 126/66 Pulse Oximetry 98 100 100 11/18/17 14:57 11/18/17 15:00 11/18/17 16:00 Temperature Pulse Rate 79 84 83 Respiratory Rate 22 16 26 H Blood Pressure 132/63 121/56 L 144/67 H Pulse Oximetry 100 100 100 11/18/17 17:00 11/18/17 18:58 11/18/17 20:00 Temperature 98.1 F 98.9 F Pulse Rate 75 75 Respiratory Rate 18 17 Blood Pressure 128/56 L 113/50 L Pulse Oximetry 100 100 95 11/19/17 00:00 11/19/17 04:00 11/19/17 07:00 Temperature 97.8 F 97.9 F Pulse Rate 76 73 Respiratory Rate 15 14 Blood Pressure 97/48 L 101/49 L Pulse Oximetry 100 99 97 11/19/17 08:00 Temperature 98.0 F Pulse Rate 79 Respiratory Rate 20 Blood Pressure 125/62 Pulse Oximetry 97 Intake & Output 11/18/17 11/19/17 11/19/17 18:59 06:59 18:59 Intake Total 1740 / 1740 Output Total 900 / 900 700 / 700 Balance 840 / 840 -700 / -700 Weight 85.3 kg 85 kg Intake: IV 100 / 100 Rocephin Inj 1,000 MG In NS Inj 100 / 100 100 ML @ 200 mls/hr IV.SIG Q24H [facility] Rx#:[id number] Oral 840 / 840 Anesthesia Amount 800 / 800 Output: Urine 550 / 550 700 / 700 Urine Amount (Catheter) 350 / 350 Indwelling Urethral Catheter 350 / 350 Other: Date of Last Bowel Movement 11/18/17 11/18/17 11/19/17 # Bowel Movements 2 1 # Incontinent Bowel Movements 2 3 Weight On Admission 85.3 kg - Constitutional no acute distress, thin - Routine HEENT Exam Head: Present: normocephalic ENT: Present: mucous membranes moist - Routine Neck Exam Present: supple - Routine Respiratory Exam Present: accessory muscle use (Even, unlabored at rest, on room air) - Routine Cardiovascular Exam Present: S1, S2 (Murmur) - Routine Abdominal Exam Present: soft (Round, no obvious tenderness or abdominal pain) - Routine Skin Exam Present: intact - Routine Neurological Exam Present: alert - Urinary Catheter Management Coude Cath placed during this visit: yes, but has since been removed by the nurse Reason for continuing: Decision to DC catheter Insertion date: 11/17/17 Insertion time: 10:35 Removal date: 11/18/17 Removal time: 15:45 Indwelling Urethral Catheter Cath placed during this visit: yes, but has since been removed by the nurse Reason for continuing: Decision to DC catheter Removal date: 11/18/17 Removal time: 15:45 <Laxmi Izaguirre - Last Filed: 11/19/17 11:55> Vital signs: Vital Signs 11/19/17 00:00 11/19/17 04:00 11/19/17 07:00 Temperature 97.8 F 97.9 F Pulse Rate 76 73 Respiratory Rate 15 14 Blood Pressure 97/48 L 101/49 L Pulse Oximetry 100 99 97 11/19/17 08:00 11/19/17 12:00 11/19/17 12:43 Temperature 98.0 F 98.0 F Pulse Rate 79 78 Respiratory Rate 20 20 Blood Pressure 125/62 125/56 L Pulse Oximetry 97 98 97 11/19/17 16:00 11/19/17 18:40 11/19/17 20:00 Temperature 97.6 F 94.5 F L Pulse Rate 70 73 Respiratory Rate 20 20 Blood Pressure 130/62 116/58 L Pulse Oximetry 100 100 96 Intake & Output 11/19/17 11/19/17 11/20/17 06:59 18:59 06:59 Intake Total 720 / 720 Output Total 700 / 700 750 / 750 Balance -700 / -700 -30 / -30 Weight 85 kg Intake: Oral 720 / 720 Output: Urine 700 / 700 750 / 750 Other: # Voids 2 Date of Last Bowel Movement 11/18/17 11/19/17 # Bowel Movements 1 1 # Incontinent Bowel Movements 3 - Urinary Catheter Management Coude Cath placed during this visit: no Indwelling Urethral Catheter Cath placed during this visit: no <Roddy Patel - Last Filed: 11/19/17 23:00> Results - Labs CBC & Chem 7: 11/19/17 04:54 11/18/17 04:54 Laboratory Results - last 24 hr 11/18/17 11/18/17 11/18/17 12:14 12:36 13:26 WBC RBC Hgb 10.3 L Hct 31.7 L MCV MCH MCHC RDW Plt Count MPV POC Glucose 110 118 H 11/19/17 11/19/17 04:54 07:37 WBC 8.2 RBC 3.00 L Hgb 9.2 L Hct 28.5 L MCV 95.0 MCH 30.8 MCHC 32.4 RDW 22.7 H Plt Count 137 L MPV 7.0 POC Glucose 132 H <Laxmi Izaguirre M - Last Filed: 11/19/17 11:55> - Labs CBC & Chem 7: 11/19/17 15:39 11/18/17 04:54 Laboratory Results - last 24 hr 11/19/17 11/19/17 11/19/17 04:54 07:37 15:39 WBC 8.2 8.5 RBC 3.00 L 3.29 L Hgb 9.2 L 10.2 L Hct 28.5 L 31.0 L MCV 95.0 94.1 MCH 30.8 31.1 MCHC 32.4 33.1 RDW 22.7 H 22.2 H Plt Count 137 L 152 MPV 7.0 7.6 POC Glucose 132 H 11/19/17 17:00 WBC RBC Hgb Hct MCV MCH MCHC RDW Plt Count MPV POC Glucose 187 H <Roddy Patel - Last Filed: 11/19/17 23:00> Assessment and Plan - Plan 11/18/2017 patient is resting in the bed currently has a heart rate in the high 80s to low 90 range, sinus rhythm with PVCs. Patient has no obvious shortness of breath eyes are closed still has some mild lethargy. Currently being maintained on CPAP during the night. But needs to be transitioned back to oxygen per nasal cannula at 4-5 L or what is needed to maintain patient sat greater than 92. Tentative plan is for enteroscopy this a.m. as long as patient is stable from his respiratory status. Current heart rate appears to be stable and managed on metoprolol. is in the room all information discussed with her. Currently hemoglobin is stable at 10.1, PT/INR 1.2. AST has been following patient recommendations for mechanical soft diet nectar thick. Currently n.p.o. 11/19/2017 patient is now transitioned out to private room and is sitting up in chair. He is alert oriented and feeling so much better discussed findings of EGD with patient and his . Patient is beginning to get appetite back, transition diet to full liquid and can increase as tolerated but discussed with patient in depth no greasy spicy foods avoid fast foods as much as possible. Current hemoglobin 9.2 which is a decrease from the last 24 hours of 10.3. Patient did note nosebleed in the past 48 hours which explains the EGD findings. Patient and are very anxious to go home, but discuss with them that patient needed to be stable with hemoglobin. Travel home is at least [address] Patient is status post enteroscopy 11/18/2017 which showed AVMs 3 in the jejunum/ cauterization completed. Possible nasopharyngeal bleed into the stomach but no obvious gastric bleeding. Plan Diet full liquids, may increase as tolerated to soft regular foods cardiac diet this p.m. CBC without differential ordered for 1600 this p.m. to recheck hemoglobin Monitor for any obvious bleeding and transfuse as needed Avoid anticoagulation at this point PPI Bowel regimen Supportive care Patient was seen per myself and Dr. 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
--- NOTE | 2017-11-19 13:41 | ECG ---
Date Performed: 11/17/2017 Time Performed: 11:01:32 PTAGE: 67 years EKG: Probable atrial fibrillation with rapid ventricular response. Indeterminate axis Right bund le branch block Possible inferior infarct - age undetermined Possible anterior infarct - age undeterm ined Lateral ST-T changes may be due to myocardial ischemia Generalized low QRS voltages Abnormal ECG PREVIOUS TRACING : 11/17/2017 10.14 Since the previous tracing, no significant change noted DOCTOR: [facility] Interpretating Date/Time 11/19/2017 13:40:41
[2017-11-19 16:15] LABS: Hemoglobin 10.2 gm/dL (13.0-17.0); Mean Corpuscular HGB Conc 33.1 % (32.0-36.0); Mean Corpuscular Hemoglobin 31.1 pg (27.0-34.0); Mean Corpuscular Volume 94.1 fL (80.0-100.0); Mean Platelet Volume 7.6 fL (7.0-11.0); Platelet Count 152 th/mm3 (150-450); Red Blood Count 3.29 mil/mm3 (4.50-5.90); Red Cell Distribution Width 22.2 % (11.6-17.2); White Blood Count 8.5 th/mm3 (4.0-11.0)
--- NOTE | 2017-11-19 16:30 | P.PNIM ---
Subjective Interval history: Patient currently has no complaints. He states that he feels well and is asking to go home. Physical Exam Vital signs: Vital Signs 11/18/17 17:00 11/18/17 18:58 11/18/17 20:00 Temperature 98.1 F 98.9 F Pulse Rate 75 75 Respiratory Rate 18 17 Blood Pressure 128/56 L 113/50 L Pulse Oximetry 100 100 95 11/19/17 00:00 11/19/17 04:00 11/19/17 07:00 Temperature 97.8 F 97.9 F Pulse Rate 76 73 Respiratory Rate 15 14 Blood Pressure 97/48 L 101/49 L Pulse Oximetry 100 99 97 11/19/17 08:00 11/19/17 12:00 11/19/17 12:43 Temperature 98.0 F 98.0 F Pulse Rate 79 78 Respiratory Rate 20 20 Blood Pressure 125/62 125/56 L Pulse Oximetry 97 98 97 Intake & Output 11/18/17 11/19/17 11/19/17 18:59 06:59 18:59 Intake Total 1740 / 1740 Output Total 900 / 900 700 / 700 150 / 150 Balance 840 / 840 -700 / -700 -150 / -150 Weight 85.3 kg 85 kg Intake: IV 100 / 100 Rocephin Inj 1,000 MG In NS Inj 100 / 100 100 ML @ 200 mls/hr IV.SIG Q24H [facility] Rx#:[id number] Oral 840 / 840 Anesthesia Amount 800 / 800 Output: Urine 550 / 550 700 / 700 150 / 150 Urine Amount (Catheter) 350 / 350 Indwelling Urethral Catheter 350 / 350 Other: Date of Last Bowel Movement 11/18/17 11/18/17 11/19/17 # Bowel Movements 2 1 1 # Incontinent Bowel Movements 2 3 Weight On Admission 85.3 kg Narrative: General patient in no acute distress HEENT extraocular movements are intact, clear oropharyngeal mucosa, no JVD Cardiovascular S1-S2 audible. Irregularly irregular rhythm. Normal heart rate Respiratory clear to auscultation bilaterally Abdomen soft, nontender, nondistended, normal bowel sounds Extremities 2+ distal pulses, no edema Neuro patient can move all 4 extremities, sensation is intact bilaterally - Urinary Catheter Management Coude Cath placed during this visit: yes, but has since been removed by the nurse Reason for continuing: Decision to DC catheter Insertion date: 11/17/17 Insertion time: 10:35 Removal date: 11/18/17 Removal time: 15:45 Indwelling Urethral Catheter Cath placed during this visit: yes, but has since been removed by the nurse Reason for continuing: Decision to DC catheter Removal date: 11/18/17 Removal time: 15:45 Results - Labs CBC & Chem 7: 11/19/17 15:39 11/18/17 04:54 Laboratory Results - last 24 hr 11/19/17 11/19/17 11/19/17 04:54 07:37 15:39 WBC 8.2 8.5 RBC 3.00 L 3.29 L Hgb 9.2 L 10.2 L Hct 28.5 L 31.0 L MCV 95.0 94.1 MCH 30.8 31.1 MCHC 32.4 33.1 RDW 22.7 H 22.2 H Plt Count 137 L 152 MPV 7.0 7.6 POC Glucose 132 H Assessment and Plan - Plan This patient is a 59-year-old male with an extensive cardiac history as mentioned above in HPI. He has a history of coronary artery disease status post CABG, mitral valve replacement, atrial fibrillation on Coumadin, and right- sided heart failure, and chronic kidney disease. He has also had 3 previous episodes of upper GI bleeds due to bleeding AVMs. The patient presented with maroon colored stool this morning and was brought into the emergency department by his for evaluation and care. He has a history of atrial fibrillation and mitral valve replacement and is on Coumadin. 1. Acute symptomatically loss anemia likely secondary to upper GI bleed 2. Acute encephalopathy likely secondary to elevated ammonia and upper GI bleed As mentioned above the patient presents with a GI bleed. He underwent PRBC transfusions and was treated with Protonix and octreotide. He was given FFP's to reverse his INR. He was transferred to the intensive care unit and subsequently underwent upper GI endoscopy. The endoscopy revealed nasopharyngeal bleeding however there was no bleeding noted in the stomach or the duodenum. There were parts of the jejunum that were previously cauterized but there was no active bleeding. After being stabilized he was transferred to the medicine floor in stable condition. Anticoagulation has been held. He was also found to have an elevated ammonia on and he was encephalopathic. After treatment of the upper GI bleed and lactulose his ammonia normalized. The patient is now awake alert and oriented 3. He is following commands and answering questions appropriately. Recommendations from GI are to continue to monitor his hemoglobin level. If his hemoglobin level is stable tomorrow he will possibly be discharged. 3. Atrial fibrillation While in the intensive care unit the patient was found to be in rapid ventricular rate. At that time since he was unstable the EGD was delayed for the first day. After his heart rate was controlled he underwent the EGD as mentioned above. Heart rate is currently stable. No anticoagulation will be given because of this bleeding. 4. Community-acquired pneumonia Chest x-ray also shows a right lower lobe infiltrate. He was started on IV antibiotics which have been continued throughout this hospitalization. He currently has no complaints of cough or shortness of breath. Continue current treatment. No DVT prophylaxis with pharmacotherapy because of the recent bleed.
[2017-11-19] MEDS ORDERED: Dextrose 50% in Water 50 ML Vial IV.PUSH PRN (21:13)
[2017-11-20] MEDS: Chlorhexidine Gluconate 2% 1 Pack (2 Cloths) TOPICAL SCH (03:19)
[2017-11-20 07:43] LABS: Calcium 7.8 mg/dL (8.5-10.1); Magnesium 1.8 mg/dL (1.5-2.5); Potassium 3.6 meq/L (3.5-5.1)
[2017-11-20] MEDS: Insulin NovoLOG Aspart Correctional Sugar Inj SQ SCH ×2 (07:43→12:53)
[2017-11-20] MEDS: Metoprolol Tartrate 25 MG Tablet PO SCH (08:46)
[2017-11-20] MEDS: Pantoprazole Sodium 20 MG DR Tablet PO SCH (08:46)
[2017-11-20 08:48] VITALS: RESP 17
--- NOTE | 2017-11-20 09:37 | P.DS ---
Date of admission: 11/16/17 13:55 Primary care physician: Michael Mcelroy Brief History from admission: This patient is a 67-year-old male who is from [place] and currently on vacation. The patient has an extensive cardiac history. He has a history of coronary artery disease status post CABG, mitral valve replacement, atrial fibrillation on Coumadin, and right-sided heart failure, and chronic kidney disease.. The patient's homemaker companion name is Dr. Peck in [place]([phone]). As per the patient's and the patient's homemaker companion the patient has a history of GI bleeds in the past and has required multiple EGDs in the past because of upper GI bleeds. I spoke to Dr. Peck over the phone who said that the EGDs showed AVMs and his last EGD the patient had a great amount of bleeding. During a bleeding episode the patient required nearly 10 units of PRBCs as per the patient's . This morning the patient appeared to be altered and the noticed that he had a maroon colored bowel movement. She then brought the patient into the emergency department for evaluation and care. There is no fevers or chills, no chest pain, no shortness of breath. DS: Medications - Discharge Medications Prescriptions: bumetanide 1 mg PO BID #14 tab DS: Summary Hospital Course: This patient is a 59-year-old male with an extensive cardiac history as mentioned above in HPI. He has a history of coronary artery disease status post CABG, mitral valve replacement, atrial fibrillation on Coumadin, and right- sided heart failure, and chronic kidney disease. He has also had 3 previous episodes of upper GI bleeds due to bleeding AVMs. The patient presented with maroon colored stool this morning and was brought into the emergency department by his for evaluation and care. He has a history of atrial fibrillation and mitral valve replacement and is on Coumadin. 1. Acute symptomatically loss anemia likely secondary to upper GI bleed 2. Acute encephalopathy likely secondary to elevated ammonia and upper GI bleed As mentioned above the patient presents with a GI bleed. He underwent PRBC transfusions and was treated with Protonix and octreotide. He was given FFP's to reverse his INR. He was transferred to the intensive care unit and subsequently underwent upper GI endoscopy. 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 Anticoagulation has been held. He was also found to have an elevated ammonia on and he was encephalopathic. After treatment of the upper GI bleed and lactulose his ammonia normalized. The patient is now awake alert and oriented 3. He is following commands and answering questions appropriately. He has been cleared from GI with no drop in his hemoglobin from yesterday to today. Current hemoglobin is 10.4. The risks and benefits of being on anticoagulation were discussed with the patient, because of the recent GI bleed anticoagulation has been stopped. Aspirin has also been stopped. He can follow-up with his primary care physician and homemaker companion this week and aspirin can be restarted if he has no bleeding. His homemaker companion were also address future anticoagulation as he is at risk for having a stroke with atrial fibrillation. The patient understands these risks and has agreed to stop anticoagulation for now. 3. Acute hypoxic respiratory failure possibly secondary to congestive heart failure 4. Atrial fibrillation After walk test the patient was found to desaturate to 87. He currently does not appear to have a CHF exacerbation however due to the patient's extensive cardiac history and deconditioning he desaturates after ambulation. He was continued on his home medications including Bumex however the dose was decreased because of recent volume loss from the GI bleed. The Bumex dose can be adjusted as needed. He will follow-up with his primary care physician this week. He will also follow-up with his homemaker companion Dr. Peck this week. I had a discussion with Dr. Peck over the phone with the patient and his at bedside. He will discuss restarting anticoagulation with the patient this week at his next appointment given the patient's elevated chads score. He will be discharged today on 2 L of supplemental oxygen. He can be reevaluated and if the patient is not desaturating on ambulation the supplemental oxygen can be stopped. While in the intensive care unit the patient was found to be in rapid ventricular rate. At that time since he was unstable the EGD was delayed for the first day. After his heart rate was controlled he underwent the EGD as mentioned above. Heart rate is currently stable. Continue beta-rufus 5. Community-acquired pneumonia Chest x-ray also shows a right lower lobe infiltrate. He was started on IV antibiotics which have been continued throughout this hospitalization. He currently has no complaints of cough or shortness of breath. - Time Spent with Patient Total time spent providing and/or coordinating discharge services: Greater than 30 minutes - Quality: VTE Deep Vein Thrombosis/Pulmonary Embolism Present on Admission: No Exam Vital signs: Vital Signs 11/19/17 12:00 11/19/17 12:43 11/19/17 16:00 Temperature 98.0 F 97.6 F Pulse Rate 78 70 Respiratory Rate 20 20 Blood Pressure 125/56 L 130/62 Pulse Oximetry 98 97 100 Pulse Oximetry [Exertion on Room Air] Pulse Oximetry [Exertion with Oxygen] Pulse Oximetry [Resting on Room Air] 11/19/17 18:40 11/19/17 20:00 11/20/17 00:00 Temperature 94.5 F L 98.3 F Pulse Rate 73 79 Respiratory Rate 20 16 Blood Pressure 116/58 L 113/55 L Pulse Oximetry 100 96 95 Pulse Oximetry [Exertion on Room Air] Pulse Oximetry [Exertion with Oxygen] Pulse Oximetry [Resting on Room Air] 11/20/17 04:00 11/20/17 08:00 11/20/17 08:40 Temperature 97.2 F L 97.8 F Pulse Rate 73 83 Respiratory Rate 20 17 Blood Pressure 130/58 L 118/55 L Pulse Oximetry 94 L 96 Pulse Oximetry [Exertion on Room Air] 87 L Pulse Oximetry [Exertion with Oxygen] 97 Pulse Oximetry [Resting on Room Air] 95 Intake & Output 11/19/17 11/20/17 11/20/17 18:59 06:59 18:59 Intake Total 720 / 720 100 / 100 Output Total 750 / 750 Balance -30 / -30 100 / 100 Weight 88 kg Intake: IV 100 / 100 Rocephin Inj 1,000 MG In NS Inj 100 / 100 100 ML @ 200 mls/hr IV.SIG Q24H [facility] Rx#:[id number] Oral 720 / 720 Output: Urine 750 / 750 Other: # Voids 2 Date of Last Bowel Movement 11/19/17 11/19/17 11/20/17 # Bowel Movements 1 1 Narrative: General patient in no acute distress, the patient is asking to go home. HEENT extraocular movements are intact, clear oropharyngeal mucosa, no JVD Cardiovascular S1-S2 audible. Irregularly irregular rhythm. Normal heart rate Respiratory clear to auscultation bilaterally Abdomen soft, nontender, nondistended, normal bowel sounds Extremities 2+ distal pulses, no edema Neuro patient can move all 4 extremities, sensation is intact bilaterally, the patient is ambulatory. Results Procedures completed during hospitalization: Enteroscopy Labs on day of discharge: Labs from last 24 hours 11/20/17 11/20/17 11/19/17 07:25 06:53 17:00 WBC RBC Hgb Hct MCV MCH MCHC RDW Plt Count MPV Sodium 144 Potassium 3.6 Chloride 111 H Carbon Dioxide 25.0 Anion Gap 8 BUN 39 H Creatinine 1.73 H Estimated GFR 39 L POC Glucose 140 H 187 H Random Glucose 133 H Calcium 7.8 L Magnesium 1.8 11/19/17 15:39 WBC 8.5 RBC 3.29 L Hgb 10.2 L Hct 31.0 L MCV 94.1 MCH 31.1 MCHC 33.1 RDW 22.2 H Plt Count 152 MPV 7.6 Sodium Potassium Chloride Carbon Dioxide Anion Gap BUN Creatinine Estimated GFR POC Glucose Random Glucose Calcium Magnesium - Impressions ITS Impressions GI Bleed Scan Nuclear Medicine 11/16/17 00:00 CONCLUSION: Positive GI bleeding scan as above. Chest X-Ray 11/17/17 10:10 CONCLUSION: 1. Slight interval worsening of diffuse infiltrate of the right lung consistent with possible worsening pneumonia. Clinical correlation is recommended. 2. Small right pleural effusion. 3. Cardiomegaly. Discharge Plan - Discharge Disposition Patient Disposition: 01 Discharge Home - Discharge Condition Condition: Good - Discharge Order Discharge Orders: Discharge Order (Routine); Ordered 11/20/17 Ordered By: Luis Hernandez - Physicians Team Attending Provider: Luis Hernandez Other Providers: Roddy Patel MD ; Ash Day MD
[2017-11-20 11:54] LABS: Hematocrit 31.5 % (39.0-51.0); Hemoglobin 10.4 gm/dL (13.0-17.0)
[2017-11-20 12:28] VITALS: BP 107/49; PULSE 80; TEMP 98; O2SAT 98
[2017-11-20] MEDS ORDERED: Metoprolol Tartrate 25 MG Tablet PO SCH (13:00)
--- NOTE | 2017-11-20 14:13 | P.PNGI ---
Subjective Interval history: Patient is resting in the bed and has been up in the room, feeling much better <Laxmi Izaguirre - Last Filed: 11/20/17 14:07> Physical Exam Vital signs: Vital Signs 11/19/17 16:00 11/19/17 18:40 11/19/17 20:00 Temperature 97.6 F 94.5 F L Pulse Rate 70 73 Respiratory Rate 20 20 Blood Pressure 130/62 116/58 L Pulse Oximetry 100 100 96 Pulse Oximetry [Exertion on Room Air] Pulse Oximetry [Exertion with Oxygen] Pulse Oximetry [Resting on Room Air] 11/20/17 00:00 11/20/17 04:00 11/20/17 08:00 Temperature 98.3 F 97.2 F L 97.8 F Pulse Rate 79 73 83 Respiratory Rate 16 20 17 Blood Pressure 113/55 L 130/58 L 118/55 L Pulse Oximetry 95 94 L 96 Pulse Oximetry [Exertion on Room Air] Pulse Oximetry [Exertion with Oxygen] Pulse Oximetry [Resting on Room Air] 11/20/17 08:40 11/20/17 12:00 11/20/17 13:57 Temperature 98.0 F Pulse Rate 80 Respiratory Rate 17 Blood Pressure 107/49 L Pulse Oximetry 98 98 Pulse Oximetry [Exertion on Room Air] 87 L Pulse Oximetry [Exertion with Oxygen] 97 Pulse Oximetry [Resting on Room Air] 95 Intake & Output 11/19/17 11/20/17 11/20/17 18:59 06:59 18:59 Intake Total 720 / 720 100 / 100 Output Total 750 / 750 Balance -30 / -30 100 / 100 Weight 88 kg Intake: IV 100 / 100 Rocephin Inj 1,000 MG In NS Inj 100 / 100 100 ML @ 200 mls/hr IV.SIG Q24H [facility] Rx#:[id number] Oral 720 / 720 Output: Urine 750 / 750 Other: # Voids 2 Date of Last Bowel Movement 11/19/17 11/19/17 11/20/17 # Bowel Movements 1 1 - Constitutional no acute distress - Routine HEENT Exam Head: Present: normocephalic ENT: Present: mucous membranes moist - Routine Respiratory Exam Present: accessory muscle use (Oxygen mild exertional dyspnea but no obvious) - Routine Cardiovascular Exam Present: S1 ( rhonchi or wheezing), S2 - Routine Abdominal Exam Present: soft (Round, no abdominal pain), normoactive bowel sounds - Urinary Catheter Management Coude Cath placed during this visit: yes, but has since been removed by the nurse Reason for continuing: Decision to DC catheter Insertion date: 11/17/17 Insertion time: 10:35 Removal date: 11/18/17 Removal time: 15:45 Indwelling Urethral Catheter Cath placed during this visit: yes, but has since been removed by the nurse Reason for continuing: Decision to DC catheter Removal date: 11/18/17 Removal time: 15:45 <Laxmi Izaguirre - Last Filed: 11/20/17 14:07> Vital signs: Vital Signs 11/19/17 18:40 11/19/17 20:00 11/20/17 00:00 Temperature 94.5 F L 98.3 F Pulse Rate 73 79 Respiratory Rate 20 16 Blood Pressure 116/58 L 113/55 L Pulse Oximetry 100 96 95 Pulse Oximetry [Exertion on Room Air] Pulse Oximetry [Exertion with Oxygen] Pulse Oximetry [Resting on Room Air] 11/20/17 04:00 11/20/17 08:00 11/20/17 08:40 Temperature 97.2 F L 97.8 F Pulse Rate 73 83 Respiratory Rate 20 17 Blood Pressure 130/58 L 118/55 L Pulse Oximetry 94 L 96 Pulse Oximetry [Exertion on Room Air] 87 L Pulse Oximetry [Exertion with Oxygen] 97 Pulse Oximetry [Resting on Room Air] 95 11/20/17 12:00 11/20/17 13:57 Temperature 98.0 F Pulse Rate 80 Respiratory Rate 17 Blood Pressure 107/49 L Pulse Oximetry 98 98 Pulse Oximetry [Exertion on Room Air] Pulse Oximetry [Exertion with Oxygen] Pulse Oximetry [Resting on Room Air] Intake & Output 11/19/17 11/20/17 11/20/17 18:59 06:59 18:59 Intake Total 720 / 720 100 / 100 Output Total 750 / 750 Balance -30 / -30 100 / 100 Weight 88 kg Intake: IV 100 / 100 Rocephin Inj 1,000 MG In NS Inj 100 / 100 100 ML @ 200 mls/hr IV.SIG Q24H [facility] Rx#:[id number] Oral 720 / 720 Output: Urine 750 / 750 Other: # Voids 2 Date of Last Bowel Movement 11/19/17 11/19/17 11/20/17 # Bowel Movements 1 1 - Urinary Catheter Management Coude Cath placed during this visit: no Indwelling Urethral Catheter Cath placed during this visit: no <Roddy Patel E - Last Filed: 11/20/17 17:43> Results - Labs CBC & Chem 7: 11/20/17 11:45 11/20/17 06:53 Laboratory Results - last 24 hr 11/19/17 11/19/17 11/20/17 15:39 17:00 06:53 WBC 8.5 RBC 3.29 L Hgb 10.2 L Hct 31.0 L MCV 94.1 MCH 31.1 MCHC 33.1 RDW 22.2 H Plt Count 152 MPV 7.6 Sodium 144 Potassium 3.6 Chloride 111 H Carbon Dioxide 25.0 Anion Gap 8 BUN 39 H Creatinine 1.73 H Estimated GFR 39 L POC Glucose 187 H Random Glucose 133 H Calcium 7.8 L Magnesium 1.8 11/20/17 11/20/17 11/20/17 07:25 11:27 11:45 WBC RBC Hgb 10.4 L Hct 31.5 L MCV MCH MCHC RDW Plt Count MPV Sodium Potassium Chloride Carbon Dioxide Anion Gap BUN Creatinine Estimated GFR POC Glucose 140 H 279 H Random Glucose Calcium Magnesium <Laxmi Izaguirre M - Last Filed: 11/20/17 14:07> - Labs CBC & Chem 7: 11/20/17 11:45 11/20/17 06:53 Laboratory Results - last 24 hr 11/20/17 11/20/17 11/20/17 06:53 07:25 11:27 Hgb Hct Sodium 144 Potassium 3.6 Chloride 111 H Carbon Dioxide 25.0 Anion Gap 8 BUN 39 H Creatinine 1.73 H Estimated GFR 39 L POC Glucose 140 H 279 H Random Glucose 133 H Calcium 7.8 L Magnesium 1.8 11/20/17 11:45 Hgb 10.4 L Hct 31.5 L Sodium Potassium Chloride Carbon Dioxide Anion Gap BUN Creatinine Estimated GFR POC Glucose Random Glucose Calcium Magnesium <Roddy Patel - Last Filed: 11/20/17 17:43> Assessment and Plan - Plan 11/20/2017 patient is feeling so much better with no symptoms of abdominal pain, nausea or vomiting patient is status post GI bleed probably secondary to his anticoagulant. Patient had AVMs that were cauterized. And hemoglobin remained stable 10.2 yesterday p.m. no acute changes today. K for discharge from a GI standpoint. spent time discussing patient's plan to return home and hold anticoagulation for now. Patient plans follow-up with cardiology when he is back home and will discuss further needs with anticoagulation with Dr. Peck. Patient has oxygen per nasal cannula and is seems to be tolerating without any obvious shortness of breath at rest. in the room. Patient was seen per myself and Dr. Patel, note was written on his behalf <Laxmi Izaguirre M - Last Filed: 11/20/17 14:07> - Plan Patient seen and examined Agree with above Continue with current supportive care Monitor labs Patient to follow-up with his primary private sector executive for further evaluation and treatment <Roddy Patel - Last Filed: 11/20/17 17:43>
--- NOTE | 2017-11-20 14:44 | P.PNIM ---
Subjective Interval history: Patient is sitting in bed comfortably. Tolerating p.o. diet. He is asking to go home. Physical Exam Vital signs: Vital Signs 11/19/17 16:00 11/19/17 18:40 11/19/17 20:00 Temperature 97.6 F 94.5 F L Pulse Rate 70 73 Respiratory Rate 20 20 Blood Pressure 130/62 116/58 L Pulse Oximetry 100 100 96 Pulse Oximetry [Exertion on Room Air] Pulse Oximetry [Exertion with Oxygen] Pulse Oximetry [Resting on Room Air] 11/20/17 00:00 11/20/17 04:00 11/20/17 08:00 Temperature 98.3 F 97.2 F L 97.8 F Pulse Rate 79 73 83 Respiratory Rate 16 20 17 Blood Pressure 113/55 L 130/58 L 118/55 L Pulse Oximetry 95 94 L 96 Pulse Oximetry [Exertion on Room Air] Pulse Oximetry [Exertion with Oxygen] Pulse Oximetry [Resting on Room Air] 11/20/17 08:40 11/20/17 12:00 11/20/17 13:57 Temperature 98.0 F Pulse Rate 80 Respiratory Rate 17 Blood Pressure 107/49 L Pulse Oximetry 98 98 Pulse Oximetry [Exertion on Room Air] 87 L Pulse Oximetry [Exertion with Oxygen] 97 Pulse Oximetry [Resting on Room Air] 95 Intake & Output 11/19/17 11/20/17 11/20/17 18:59 06:59 18:59 Intake Total 720 / 720 100 / 100 Output Total 750 / 750 Balance -30 / -30 100 / 100 Weight 88 kg Intake: IV 100 / 100 Rocephin Inj 1,000 MG In NS Inj 100 / 100 100 ML @ 200 mls/hr IV.SIG Q24H [facility] Rx#:[id number] Oral 720 / 720 Output: Urine 750 / 750 Other: # Voids 2 Date of Last Bowel Movement 11/19/17 11/19/17 11/20/17 # Bowel Movements 1 1 Narrative: General patient in no acute distress, the patient is asking to go home. HEENT extraocular movements are intact, clear oropharyngeal mucosa, no JVD Cardiovascular S1-S2 audible. Irregularly irregular rhythm. Normal heart rate Respiratory clear to auscultation bilaterally Abdomen soft, nontender, nondistended, normal bowel sounds Extremities 2+ distal pulses, no edema Neuro patient can move all 4 extremities, sensation is intact bilaterally, the patient is ambulatory. - Urinary Catheter Management Coude Cath placed during this visit: yes, but has since been removed by the nurse Reason for continuing: Decision to DC catheter Insertion date: 11/17/17 Insertion time: 10:35 Removal date: 11/18/17 Removal time: 15:45 Indwelling Urethral Catheter Cath placed during this visit: yes, but has since been removed by the nurse Reason for continuing: Decision to DC catheter Removal date: 11/18/17 Removal time: 15:45 Results - Labs CBC & Chem 7: 11/20/17 11:45 11/20/17 06:53 Laboratory Results - last 24 hr 11/19/17 11/19/17 11/20/17 15:39 17:00 06:53 WBC 8.5 RBC 3.29 L Hgb 10.2 L Hct 31.0 L MCV 94.1 MCH 31.1 MCHC 33.1 RDW 22.2 H Plt Count 152 MPV 7.6 Sodium 144 Potassium 3.6 Chloride 111 H Carbon Dioxide 25.0 Anion Gap 8 BUN 39 H Creatinine 1.73 H Estimated GFR 39 L POC Glucose 187 H Random Glucose 133 H Calcium 7.8 L Magnesium 1.8 11/20/17 11/20/17 11/20/17 07:25 11:27 11:45 WBC RBC Hgb 10.4 L Hct 31.5 L MCV MCH MCHC RDW Plt Count MPV Sodium Potassium Chloride Carbon Dioxide Anion Gap BUN Creatinine Estimated GFR POC Glucose 140 H 279 H Random Glucose Calcium Magnesium Assessment and Plan - Plan This patient is a 59-year-old male with an extensive cardiac history as mentioned above in HPI. He has a history of coronary artery disease status post CABG, mitral valve replacement, atrial fibrillation on Coumadin, and right- sided heart failure, and chronic kidney disease. He has also had 3 previous episodes of upper GI bleeds due to bleeding AVMs. The patient presented with maroon colored stool this morning and was brought into the emergency department by his for evaluation and care. He has a history of atrial fibrillation and mitral valve replacement and is on Coumadin. 1. Acute symptomatically loss anemia likely secondary to upper GI bleed 2. Acute encephalopathy likely secondary to elevated ammonia and upper GI bleed As mentioned above the patient presents with a GI bleed. He underwent PRBC transfusions and was treated with Protonix and octreotide. He was given FFP's to reverse his INR. He was transferred to the intensive care unit and subsequently underwent upper GI endoscopy. 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 Anticoagulation has been held. He was also found to have an elevated ammonia on and he was encephalopathic. After treatment of the upper GI bleed and lactulose his ammonia normalized. The patient is now awake alert and oriented 3. He is following commands and answering questions appropriately. He has been cleared from GI with no drop in his hemoglobin from yesterday to today. Current hemoglobin is 10.4. The risks and benefits of being on anticoagulation were discussed with the patient, because of the recent GI bleed anticoagulation has been stopped. Aspirin has also been stopped. He can follow-up with his primary care physician and peanut sorter this week and aspirin can be restarted if he has no bleeding. His peanut sorter were also address future anticoagulation as he is at risk for having a stroke with atrial fibrillation. The patient understands these risks and has agreed to stop anticoagulation for now. 3. Acute hypoxic respiratory failure possibly secondary to congestive heart failure 4. Atrial fibrillation After walk test the patient was found to desaturate to 87. He currently does not appear to have a CHF exacerbation however due to the patient's extensive cardiac history and deconditioning he desaturates after ambulation. He was continued on his home medications including Bumex however the dose was decreased because of recent volume loss from the GI bleed. The Bumex dose can be adjusted as needed. He will follow-up with his primary care physician this week. He will also follow-up with his peanut sorter Dr. Peck this week. I had a discussion with Dr. Peck over the phone with the patient and his at bedside. He will discuss restarting anticoagulation with the patient this week at his next appointment given the patient's elevated chads score. He will be discharged today on 2 L of supplemental oxygen. He can be reevaluated and if the patient is not desaturating on ambulation the supplemental oxygen can be stopped. While in the intensive care unit the patient was found to be in rapid ventricular rate. At that time since he was unstable the EGD was delayed for the first day. After his heart rate was controlled he underwent the EGD as mentioned above. Heart rate is currently stable. Continue beta-rufus 5. Community-acquired pneumonia Chest x-ray also shows a right lower lobe infiltrate. He was started on IV antibiotics which have been continued throughout this hospitalization. He currently has no complaints of cough or shortness of breath.
== END 2017-11-20 14:02 | disposition home or self-care (01) ==
LOC: NEPE 07:48 → NEDA 13:55 → N06 17:31 → HIMC 11-17 10:06 → N04 11-18 16:55
PROVIDERS: ADMIT Hospitalist; ATTEND Hospitalist
PROC: PANENDO (2017-11-18 11:06)